=== PATIENT | female | born 1935 | race Caucasian/White ===

== ENCOUNTER 2017-08-22 22:36 | Inpatient (IN) | payer MEDICARE, OTHER ==
[~2017-08-22] VITALS: Ht 162.6 cm; Wt 50.0 kg
[2017-08-22 23:25] LABS: HEMATOCRIT 35.4 % (35.0-45.0); HEMOGLOBIN 11.7 g/dl (12.0-16.0); MEAN CORPUSCULAR HEMOGLOBIN 30.7 PG (27.0-31.0); MEAN CORPUSCULAR HGB CONC 33.2 % (33.0-36.5); MEAN CORPUSCULAR VOLUME 92.4 FL (78-98); MEAN PLATELET VOLUME 7.4 FL (7.4-10.4); RED BLOOD COUNT 3.83 X10'6 (4.20-5.60); RED CELL DISTRIBUTION WIDTH 13.4 % (11.5-14.5)
[2017-08-22 23:27] LABS: INR 1.1 INR; PARTIAL THROMBOPLASTIN TIME 29 SECONDS (22-32)
[2017-08-22 23:29] LABS: PLATELET COUNT 739 X10'3 (140-440)
[2017-08-22 23:30] LABS: WHITE BLOOD COUNT 32.5 X10'3 (4.5-11.0)
[2017-08-22] MEDS ORDERED: morphine 4 MG/ML inj SYRINge IV ONE (23:35)
[2017-08-22] MEDS ORDERED: LISI-604 PO (23:38)
[2017-08-22] MEDS ORDERED: TRAM50TA2 PO (23:38)
[2017-08-22] MEDS ORDERED: GABA-530 PO (23:38)
[2017-08-22 23:39] LABS: ALANINE AMINOTRANSFERASE 75 U/L (12-78); ALBUMIN 1.9 G/DL (3.4-5.0); ALBUMIN/GLOBULIN RATIO 0.4 (1.1-1.5); ALKALINE PHOSPHATASE 675 IU/L (46-116); ANION GAP 6 (8-16); ASPARTATE AMINO TRANSFERASE 81 U/L (10-37); BILIRUBIN,TOTAL 0.5 MG/DL (0.1-1.0); BLOOD UREA NITROGEN 17 MG/DL (7-18); BUN/CREATININE RATIO 15.3 (6.6-38.0); CALCIUM 8.8 MG/DL (8.5-10.1); CHLORIDE 94 MMOL/L (99-107); CREATININE 1.11 MG/DL (0.40-0.90); GLUCOSE 148 MG/DL (70-104); SODIUM 126 MMOL/L (135-145); TOTAL PROTEIN 6.8 G/DL (6.4-8.2); eGFR 47 ML/MIN
[2017-08-22] MEDS ORDERED: ondansetron/PF 4mg/2ml inj IV ONE (23:45)
[2017-08-22 23:47] LABS: TOTAL CELLS COUNTED 100
[2017-08-22 23:49] LABS: PLATELET ESTIMATE INCREASED
[2017-08-22] MEDS ORDERED: dextrose 50%-water 50ml dispensing syringe IV ONE (23:50)
[2017-08-22] MEDS ORDERED: sodium polystyrene sulfonate 15gm/60ml oral suspension PO ONE (23:50)
[2017-08-22] MEDS ORDERED: insulin regular, human 10 units/0.1 ml syringe IV ONE (23:50)
[2017-08-22] MEDS ORDERED: calcium chloride 100 MG/1 ML inj IV ONE ×2 (23:50→23:55)
[2017-08-23] MEDS ORDERED: albuterol 2.5 MG/3 ML nebule NEB ONE (00:45)
[2017-08-23] MEDS ORDERED: ampicillin/sulbac 3gm/NS 100ml 100 ML IV SCH (02:00)
[2017-08-23] MEDS ORDERED: mag hydrox/Alum hydrox/simeth 30ml oral suspension PO PRN (02:25)
[2017-08-23] MEDS ORDERED: magnesium hydroxide 30ml (MOM) UD suspension PO PRN (02:25)
[2017-08-23] MEDS ORDERED: ondansetron/PF 4mg/2ml inj IV PRN (02:25)
[2017-08-23] MEDS ORDERED: HYDROcodone/acetaminophen 10/325mg tab PO PRN (02:25)
[2017-08-23] MEDS ORDERED: acetaminophen 325mg tablet PO PRN ×2 (02:25)
[2017-08-23] MEDS ORDERED: HYDROcodone/acetaminophen 5mg/325mg tablet PO PRN (02:25)
[2017-08-23] MEDS ORDERED: piperacillin/tazo 4.5gm/100ml 100 ML IV SCH (02:36)
[2017-08-23] MEDS ORDERED: vancomycin/NS 1 GM ADD-VANTAGE 250 ML X 1 DOSE IV ONE ×2 (02:40→04:55)
[2017-08-23 02:43] LABS: CLARITY,URINE CLEAR (Clear); COLOR,URINE YELLOW (Yellow); GLUCOSE, URINE 100 mg/dl (Neg); KETONES,URINE NEGATIVE (Neg); LEUKOCYTE ESTERASE ,URINE NEGATIVE (Neg); NITRITES, URINE NEGATIVE (Neg); OCCULT BLOOD,URINE NEGATIVE (Neg); PROTEIN,URINE NEGATIVE (Neg); UROBILINOGEN,URINE 0.2 E.U/dL (0.2-1.0)
[2017-08-23 02:46] LABS: SODIUM,URINE RANDOM < 15 MEQ/L
[2017-08-23] MEDS: normal saline 1000ml 1,000 ML IV SCH ×3 (02:50→21:40)
[2017-08-23 02:51] LABS: OSMOLALITY UA 226 MOSM/K (50-1400)
[2017-08-23] MEDS: azithromycin 250mg tablet PO SCH ×2 (03:01→22:26)
[2017-08-23] MEDS: morphine 4 MG/ML inj SYRINge IV PRN ×7 (03:01→22:27)
[2017-08-23 03:06] LABS: UA COLLECTION TYPE CLN CATCH MIDSTREAM
[2017-08-23 03:45] VITALS: BP 124/69
[2017-08-23] MEDS ORDERED: diphenhydrAMINE 25mg capsule PO PRN (04:20)
[2017-08-23 05:25] LABS: ALBUMIN 1.7 G/DL (3.4-5.0); ANION GAP 7 (8-16); BLOOD UREA NITROGEN 17 MG/DL (7-18); BUN/CREATININE RATIO 16.5 (6.6-38.0); CHLORIDE 95 MMOL/L (99-107); CREATININE 1.03 MG/DL (0.40-0.90); GLUCOSE 140 MG/DL (70-104); POTASSIUM 5.7 MMOL/L (3.5-5.1); SODIUM 128 MMOL/L (135-145); TOTAL CARBON DIOXIDE 26.5 MMOL/L (24-32); eGFR 52 ML/MIN
[2017-08-23 05:42] LABS: OSMOLALITY 275 MOSM/K (280-300)
[2017-08-23 07:15] VITALS: BP 106/53
[2017-08-23] MEDS ORDERED: vancomycin/NS 1 GM ADD-VANTAGE 250 ML IV SCH (08:00)
[2017-08-23] MEDS: gabapentin 100mg capsule PO SCH ×4 (08:00→21:00)
[2017-08-23] MEDS ORDERED: lactobacillus rhamnosus 10,000 MMU CELLS/CAPSULE PO SCH (08:00)
[2017-08-23] MEDS: lactobacillus rhamnosus 10,000 MMU CELLS/CAPSULE PO SCH ×2 (08:33→19:52)
[2017-08-23] MEDS: CefTRIAXone/D5W-Rocephin 1gm 50 ML IV SCH (10:11)
[2017-08-23 11:16] VITALS: BP 116/62
[2017-08-23] MEDS ORDERED: LIDOcaine 1%/PF 5ML 10 MG/ML VIAL ONE (13:10)
[2017-08-23 13:35] VITALS: BP 133/84
[2017-08-23] MEDS ORDERED: tPA-cathflo 2 MG/2 ml IV flush ONE (13:47)
[2017-08-23 13:50] VITALS: BP 141/87
[2017-08-23 15:40] LABS: LDH,BODY FLUID 1792 U/L; TOTAL PROTEIN,BODY FLUID 3.9 G/DL
[2017-08-23 15:41] LABS: BF RBC COUNT 21075 /CU MM; BF WBC COUNT 670 /CU MM (0-1000); BFAPPEAR BLOODY; BFCOLOR RED; BFVOLUME 3 ML; LYMPHOCYTES,BODY FLUID 5 %; MONOCYTES,BODY FLUID 5 %; NEUTROPHILS,BODY FLUID 90 %
[2017-08-23] MEDS ORDERED: diazepam 2mg tablet PO ONE (16:15)
[2017-08-23 18:00] VITALS: BP 127/78
[2017-08-24] VITALS: BP 140/68
[2017-08-24] MEDS: morphine 4 MG/ML inj SYRINge IV PRN ×6 (01:07→21:06)
[2017-08-24] MEDS: vancomycin/NS 1 GM ADD-VANTAGE 250 ML IV SCH (05:20)
[2017-08-24 06:07] LABS: HEMATOCRIT 32.7 % (35.0-45.0); MEAN CORPUSCULAR HEMOGLOBIN 31.3 PG (27.0-31.0); MEAN CORPUSCULAR HGB CONC 33.7 % (33.0-36.5); MEAN CORPUSCULAR VOLUME 92.9 FL (78-98); MEAN PLATELET VOLUME 7.8 FL (7.4-10.4); PLATELET COUNT 639 X10'3 (140-440); RED BLOOD COUNT 3.52 X10'6 (4.20-5.60); RED CELL DISTRIBUTION WIDTH 13.6 % (11.5-14.5)
[2017-08-24 06:19] LABS: WHITE BLOOD COUNT 34.6 X10'3 (4.5-11.0)
[2017-08-24 06:42] LABS: ALANINE AMINOTRANSFERASE 40 U/L (12-78); ALBUMIN 1.5 G/DL (3.4-5.0); ALBUMIN/GLOBULIN RATIO 0.3 (1.1-1.5); ALKALINE PHOSPHATASE 454 IU/L (46-116); ANION GAP 10 (8-16); ASPARTATE AMINO TRANSFERASE 17 U/L (10-37); BILIRUBIN,TOTAL 0.4 MG/DL (0.1-1.0); BLOOD UREA NITROGEN 20 MG/DL (7-18); BUN/CREATININE RATIO 18.3 (6.6-38.0); CALCIUM 8.3 MG/DL (8.5-10.1); CHLORIDE 101 MMOL/L (99-107); CREATININE 1.09 MG/DL (0.40-0.90); GLUCOSE 89 MG/DL (70-104); POTASSIUM 5.4 MMOL/L (3.5-5.1); SODIUM 136 MMOL/L (135-145); TOTAL PROTEIN 5.8 G/DL (6.4-8.2); eGFR 48 ML/MIN
[2017-08-24 07:00] VITALS: BP 111/57
[2017-08-24 07:07] LABS: PLATELET ESTIMATE INCREASED; TOTAL CELLS COUNTED 100
[2017-08-24] MEDS: gabapentin 100mg capsule PO SCH ×3 (07:27→21:00)
[2017-08-24] MEDS: lactobacillus rhamnosus 10,000 MMU CELLS/CAPSULE PO SCH ×2 (07:30→22:07)
[2017-08-24] MEDS: CefTRIAXone/D5W-Rocephin 1gm 50 ML IV SCH (07:30)
[2017-08-24 11:50] VITALS: BP 120/71
[2017-08-24] MEDS: [UNRECOGNIZED DRUG - OTHER] PO SCH ×2 (12:07→18:57)
[2017-08-24] MEDS ORDERED: tPA-cathflo 2 MG/2 ml IV flush ICATH ONE (14:00)
[2017-08-24] MEDS ORDERED: tPA-cathflo 2 MG/2 ml IV flush ONE (14:06)
[2017-08-24] MEDS: doxycycline hyclate 100mg tablet.DR PO SCH (17:36)
[2017-08-24 20:00] VITALS: BP 164/84
[2017-08-24] MEDS ORDERED: bisacodyl 10mg suppository rectal RC STA (20:14)
[2017-08-24] MEDS ORDERED: mineral oil 133ml enema RC PRN (20:15)
[2017-08-24 20:16] LABS: PLATELET ESTIMATE INCREASED; TOTAL CELLS COUNTED 100
[2017-08-24] MEDS: azithromycin 250mg tablet PO SCH (22:07)
[2017-08-24] MEDS: normal saline 1000ml 1,000 ML IV SCH (22:35)
[2017-08-25] VITALS: BP 140/86
[2017-08-25] MEDS: morphine 4 MG/ML inj SYRINge IV PRN ×3 (00:50→17:37)
[2017-08-25 05:15] LABS: BASOPHILS % (AUTO) 0.1 % (0-1); EOSINOPHILS % (AUTO) 0 % (0-6); HEMATOCRIT 31.5 % (35.0-45.0); HEMOGLOBIN 10.6 g/dl (12.0-16.0); LYMPHOCYTES # (AUTO) 0.9 X10'3 (1.1-4.8); LYMPHOCYTES % (AUTO) 2.9 % (21-51); MEAN CORPUSCULAR HEMOGLOBIN 31.1 PG (27.0-31.0); MEAN CORPUSCULAR HGB CONC 33.7 % (33.0-36.5); MEAN CORPUSCULAR VOLUME 92.3 FL (78-98); MEAN PLATELET VOLUME 7.5 FL (7.4-10.4); MONOCYTES # (AUTO) 1.7 X10'3 (0-0.9); MONOCYTES % (AUTO) 5.2 % (2-12); NEUTROPHILS # (AUTO) 29.2 X10'3 (1.8-7.7); NEUTROPHILS % (AUTO) 91.8 % (42-75); PLATELET COUNT 761 X10'3 (140-440); RED BLOOD COUNT 3.41 X10'6 (4.20-5.60); RED CELL DISTRIBUTION WIDTH 13.2 % (11.5-14.5)
[2017-08-25] MEDS: vancomycin/NS 1 GM ADD-VANTAGE 250 ML IV SCH (05:21)
[2017-08-25 05:36] LABS: ALBUMIN 1.4 G/DL (3.4-5.0); ANION GAP 8 (8-16); BLOOD UREA NITROGEN 23 MG/DL (7-18); BUN/CREATININE RATIO 24.5 (6.6-38.0); CHLORIDE 101 MMOL/L (99-107); CREATININE 0.94 MG/DL (0.40-0.90); GLUCOSE 135 MG/DL (70-104); POTASSIUM 4.8 MMOL/L (3.5-5.1); SODIUM 132 MMOL/L (135-145); TOTAL CARBON DIOXIDE 23.5 MMOL/L (24-32); eGFR 57 ML/MIN
[2017-08-25 06:06] LABS: WHITE BLOOD COUNT 31.9 X10'3 (4.5-11.0)
[2017-08-25 07:00] VITALS: BP 109/56
[2017-08-25] MEDS: gabapentin 100mg capsule PO SCH ×3 (07:12→20:47)
[2017-08-25] MEDS: CefTRIAXone/D5W-Rocephin 1gm 50 ML IV SCH (07:21)
[2017-08-25] MEDS: doxycycline hyclate 100mg tablet.DR PO SCH (07:27)
[2017-08-25 07:28] LABS: PLATELET ESTIMATE INCREASED; TOTAL CELLS COUNTED 100
[2017-08-25] MEDS: [UNRECOGNIZED DRUG - OTHER] PO SCH ×3 (08:00→18:00)
[2017-08-25] MEDS: lactobacillus rhamnosus 10,000 MMU CELLS/CAPSULE PO SCH ×2 (08:00→20:40)
[2017-08-25] MEDS: normal saline 1000ml 1,000 ML IV SCH (18:35)
[2017-08-25 20:00] VITALS: BP 147/71
[2017-08-25] MEDS: traMADol 50MG tablet PO PRN (20:39)
[2017-08-25] MEDS: DOXYCYCLINE 100MG CAPSULE PO SCH (20:39)
[2017-08-25] MEDS: azithromycin 250mg tablet PO SCH (20:40)
[2017-08-25] MEDS: metoclopramide 5 mg/ml inj IV SCH (20:40)
[2017-08-26] VITALS: BP 145/71
[2017-08-26] MEDS: metoclopramide 5 mg/ml inj IV SCH ×4 (02:15→20:14)
[2017-08-26] MEDS: traMADol 50MG tablet PO PRN ×3 (02:19→18:50)
[2017-08-26] MEDS ORDERED: VANCOMYCIN LEVEL IV ONE (04:30)
[2017-08-26 05:57] LABS: BASOPHILS # (AUTO) 0.1 X10'3 (0-0.2); BASOPHILS % (AUTO) 0.5 % (0-1); EOSINOPHILS # (AUTO) 0.1 X10'3 (0-0.9); EOSINOPHILS % (AUTO) 0.3 % (0-6); HEMATOCRIT 33.1 % (35.0-45.0); HEMOGLOBIN 11.1 g/dl (12.0-16.0); LYMPHOCYTES # (AUTO) 1.8 X10'3 (1.1-4.8); LYMPHOCYTES % (AUTO) 7.8 % (21-51); MEAN CORPUSCULAR HEMOGLOBIN 30.5 PG (27.0-31.0); MEAN CORPUSCULAR HGB CONC 33.4 % (33.0-36.5); MEAN CORPUSCULAR VOLUME 91.3 FL (78-98); MEAN PLATELET VOLUME 7.5 FL (7.4-10.4); MONOCYTES # (AUTO) 1.3 X10'3 (0-0.9); MONOCYTES % (AUTO) 5.8 % (2-12); NEUTROPHILS # (AUTO) 19.9 X10'3 (1.8-7.7); NEUTROPHILS % (AUTO) 85.6 % (42-75); PLATELET COUNT 703 X10'3 (140-440); RED BLOOD COUNT 3.62 X10'6 (4.20-5.60); RED CELL DISTRIBUTION WIDTH 13.8 % (11.5-14.5); WHITE BLOOD COUNT 23.2 X10'3 (4.5-11.0)
[2017-08-26 06:17] LABS: ALBUMIN 1.4 G/DL (3.4-5.0); ANION GAP 9 (8-16); BLOOD UREA NITROGEN 23 MG/DL (7-18); BUN/CREATININE RATIO 24.7 (6.6-38.0); CALCIUM 8.6 MG/DL (8.5-10.1); CHLORIDE 106 MMOL/L (99-107); CREATININE 0.93 MG/DL (0.40-0.90); GLUCOSE 83 MG/DL (70-104); POTASSIUM 4.1 MMOL/L (3.5-5.1); SODIUM 140 MMOL/L (135-145); TOTAL CARBON DIOXIDE 24.8 MMOL/L (24-32); VANCOMYCIN,TROUGH 10.7 UG/ML (6.0-14.0); eGFR 58 ML/MIN
[2017-08-26 07:42] LABS: PLATELET ESTIMATE INCREASED; POLYCHROMASIA 1+; TOTAL CELLS COUNTED 100
[2017-08-26 07:43] LABS: BURR CELLS 1+
[2017-08-26 07:44] VITALS: BP 122/56
[2017-08-26] MEDS: [UNRECOGNIZED DRUG - OTHER] PO SCH ×3 (08:00→17:28)
[2017-08-26] MEDS: gabapentin 100mg capsule PO SCH ×3 (08:13→20:14)
[2017-08-26] MEDS: lactobacillus rhamnosus 10,000 MMU CELLS/CAPSULE PO SCH ×2 (08:14→20:13)
[2017-08-26] MEDS: CefTRIAXone/D5W-Rocephin 1gm 50 ML IV SCH (08:15)
[2017-08-26] MEDS: DOXYCYCLINE 100MG CAPSULE PO SCH ×2 (08:20→17:28)
[2017-08-26 12:00] VITALS: BP 140/73
[2017-08-26] MEDS: normal saline 1000ml 1,000 ML IV SCH ×2 (14:35→20:35)
[2017-08-26 20:00] VITALS: BP 138/79
[2017-08-26] MEDS: azithromycin 250mg tablet PO SCH (20:14)
[2017-08-27] VITALS: BP 148/86
[2017-08-27] MEDS: traMADol 50MG tablet PO PRN ×4 (02:07→19:28)
[2017-08-27] MEDS: metoclopramide 5 mg/ml inj IV SCH ×4 (02:07→19:29)
[2017-08-27 06:05] LABS: BASOPHILS # (AUTO) 0.1 X10'3 (0-0.2); BASOPHILS % (AUTO) 0.4 % (0-1); EOSINOPHILS # (AUTO) 0.1 X10'3 (0-0.9); EOSINOPHILS % (AUTO) 0.7 % (0-6); HEMATOCRIT 29.5 % (35.0-45.0); HEMOGLOBIN 9.7 g/dl (12.0-16.0); LYMPHOCYTES # (AUTO) 1.5 X10'3 (1.1-4.8); LYMPHOCYTES % (AUTO) 10.9 % (21-51); MEAN CORPUSCULAR HEMOGLOBIN 30.2 PG (27.0-31.0); MEAN CORPUSCULAR HGB CONC 32.8 % (33.0-36.5); MEAN PLATELET VOLUME 7.3 FL (7.4-10.4); MONOCYTES # (AUTO) 1.1 X10'3 (0-0.9); MONOCYTES % (AUTO) 7.6 % (2-12); NEUTROPHILS # (AUTO) 11.2 X10'3 (1.8-7.7); NEUTROPHILS % (AUTO) 80.4 % (42-75); PLATELET COUNT 760 X10'3 (140-440); RED CELL DISTRIBUTION WIDTH 13.7 % (11.5-14.5)
[2017-08-27 06:13] LABS: ALBUMIN 1.3 G/DL (3.4-5.0); ANION GAP 9 (8-16); BLOOD UREA NITROGEN 20 MG/DL (7-18); CALCIUM 7.9 MG/DL (8.5-10.1); CHLORIDE 107 MMOL/L (99-107); CREATININE 0.77 MG/DL (0.40-0.90); GLUCOSE 87 MG/DL (70-104); POTASSIUM 3.6 MMOL/L (3.5-5.1); SODIUM 140 MMOL/L (135-145); TOTAL CARBON DIOXIDE 24.5 MMOL/L (24-32); eGFR 72 ML/MIN
[2017-08-27 07:00] VITALS: BP 140/79
[2017-08-27] MEDS: lactobacillus rhamnosus 10,000 MMU CELLS/CAPSULE PO SCH ×2 (07:56→19:28)
[2017-08-27] MEDS: gabapentin 100mg capsule PO SCH ×3 (07:56→20:38)
[2017-08-27] MEDS: CefTRIAXone/D5W-Rocephin 1gm 50 ML IV SCH (07:58)
[2017-08-27] MEDS: [UNRECOGNIZED DRUG - OTHER] PO SCH ×3 (08:07→17:27)
[2017-08-27] MEDS: DOXYCYCLINE 100MG CAPSULE PO SCH ×2 (08:09→17:27)
[2017-08-27 11:00] VITALS: BP 136/69
[2017-08-27 19:39] VITALS: BP 155/81
[2017-08-27] MEDS: azithromycin 250mg tablet PO SCH (20:38)
[2017-08-27 23:33] VITALS: BP 144/79
[2017-08-28] MEDS: traMADol 50MG tablet PO PRN ×5 (01:16→20:47)
[2017-08-28] MEDS: metoclopramide 5 mg/ml inj IV SCH ×4 (01:19→20:00)
[2017-08-28 05:17] LABS: BASOPHILS # (AUTO) 0.1 X10'3 (0-0.2); BASOPHILS % (AUTO) 0.7 % (0-1); EOSINOPHILS # (AUTO) 0.1 X10'3 (0-0.9); EOSINOPHILS % (AUTO) 0.4 % (0-6); HEMATOCRIT 30.1 % (35.0-45.0); LYMPHOCYTES # (AUTO) 1.6 X10'3 (1.1-4.8); LYMPHOCYTES % (AUTO) 9.8 % (21-51); MEAN CORPUSCULAR HEMOGLOBIN 30.4 PG (27.0-31.0); MEAN CORPUSCULAR HGB CONC 33.2 % (33.0-36.5); MEAN CORPUSCULAR VOLUME 91.7 FL (78-98); MEAN PLATELET VOLUME 7.3 FL (7.4-10.4); MONOCYTES # (AUTO) 1.5 X10'3 (0-0.9); MONOCYTES % (AUTO) 9.2 % (2-12); NEUTROPHILS # (AUTO) 12.9 X10'3 (1.8-7.7); NEUTROPHILS % (AUTO) 79.9 % (42-75); PLATELET COUNT 732 X10'3 (140-440); RED BLOOD COUNT 3.28 X10'6 (4.20-5.60); RED CELL DISTRIBUTION WIDTH 13.6 % (11.5-14.5); WHITE BLOOD COUNT 16.1 X10'3 (4.5-11.0)
[2017-08-28 05:29] LABS: ALBUMIN 1.4 G/DL (3.4-5.0); ANION GAP 7 (8-16); BLOOD UREA NITROGEN 15 MG/DL (7-18); CALCIUM 8.1 MG/DL (8.5-10.1); CHLORIDE 107 MMOL/L (99-107); CREATININE 0.79 MG/DL (0.40-0.90); GLUCOSE 86 MG/DL (70-104); POTASSIUM 3.5 MMOL/L (3.5-5.1); SODIUM 141 MMOL/L (135-145); TOTAL CARBON DIOXIDE 27.4 MMOL/L (24-32); eGFR 70 ML/MIN
[2017-08-28 07:30] VITALS: BP 153/82
[2017-08-28] MEDS: CefTRIAXone/D5W-Rocephin 1gm 50 ML IV SCH (08:05)
[2017-08-28] MEDS: lactobacillus rhamnosus 10,000 MMU CELLS/CAPSULE PO SCH ×2 (08:06→20:47)
[2017-08-28] MEDS: DOXYCYCLINE 100MG CAPSULE PO SCH ×2 (08:06→17:16)
[2017-08-28] MEDS: [UNRECOGNIZED DRUG - OTHER] PO SCH (08:06)
[2017-08-28] MEDS: gabapentin 100mg capsule PO SCH ×3 (08:06→20:47)
[2017-08-28 11:51] VITALS: BP 147/81
[2017-08-28] MEDS: [UNRECOGNIZED DRUG - OTHER] PO SCH ×2 (13:15→17:18)
[2017-08-28 20:00] VITALS: BP 158/88
[2017-08-28] MEDS: azithromycin 250mg tablet PO SCH (20:48)
[2017-08-29] VITALS: BP 149/74
[2017-08-29] MEDS: metoclopramide 5 mg/ml inj IV SCH ×4 (02:00→21:54)
[2017-08-29 07:17] VITALS: BP 137/72
[2017-08-29 07:38] LABS: BASOPHILS # (AUTO) 0.2 X10'3 (0-0.2); MONOCYTES % (AUTO) 7.1 % (2-12)
[2017-08-29 07:42] LABS: BASOPHILS % (AUTO) 0.9 % (0-1); EOSINOPHILS % (AUTO) 0 % (0-6); HEMATOCRIT 31.5 % (35.0-45.0); HEMOGLOBIN 10.6 g/dl (12.0-16.0); LYMPHOCYTES # (AUTO) 1.7 X10'3 (1.1-4.8); LYMPHOCYTES % (AUTO) 9.6 % (21-51); MEAN CORPUSCULAR HEMOGLOBIN 30.7 PG (27.0-31.0); MEAN CORPUSCULAR HGB CONC 33.8 % (33.0-36.5); MEAN CORPUSCULAR VOLUME 90.8 FL (78-98); MEAN PLATELET VOLUME 6.5 FL (7.4-10.4); MONOCYTES # (AUTO) 1.3 X10'3 (0-0.9); NEUTROPHILS # (AUTO) 14.6 X10'3 (1.8-7.7); NEUTROPHILS % (AUTO) 82.4 % (42-75); PLATELET COUNT 743 X10'3 (140-440); RED BLOOD COUNT 3.47 X10'6 (4.20-5.60); RED CELL DISTRIBUTION WIDTH 13.7 % (11.5-14.5); WHITE BLOOD COUNT 17.7 X10'3 (4.5-11.0)
[2017-08-29 07:52] LABS: ALANINE AMINOTRANSFERASE 26 U/L (12-78); ALBUMIN 1.4 G/DL (3.4-5.0); ALBUMIN/GLOBULIN RATIO 0.4 (1.1-1.5); ALKALINE PHOSPHATASE 245 IU/L (46-116); ANION GAP 7 (8-16); ASPARTATE AMINO TRANSFERASE 16 U/L (10-37); BILIRUBIN,TOTAL 0.3 MG/DL (0.1-1.0); BLOOD UREA NITROGEN 15 MG/DL (7-18); BUN/CREATININE RATIO 19.7 (6.6-38.0); CALCIUM 7.6 MG/DL (8.5-10.1); CHLORIDE 105 MMOL/L (99-107); CREATININE 0.76 MG/DL (0.40-0.90); GLUCOSE 85 MG/DL (70-104); POTASSIUM 3.8 MMOL/L (3.5-5.1); SODIUM 141 MMOL/L (135-145); TOTAL PROTEIN 5.3 G/DL (6.4-8.2); eGFR 73 ML/MIN
[2017-08-29] MEDS: gabapentin 100mg capsule PO SCH ×3 (08:40→21:57)
[2017-08-29] MEDS: lactobacillus rhamnosus 10,000 MMU CELLS/CAPSULE PO SCH ×2 (08:40→21:57)
[2017-08-29] MEDS: DOXYCYCLINE 100MG CAPSULE PO SCH ×2 (08:40→16:32)
[2017-08-29] MEDS: [UNRECOGNIZED DRUG - OTHER] PO SCH (08:40)
[2017-08-29] MEDS: CefTRIAXone/D5W-Rocephin 1gm 50 ML IV SCH (08:41)
[2017-08-29] MEDS: traMADol 50MG tablet PO PRN ×3 (08:48→16:32)
[2017-08-29] MEDS ORDERED: NORMAL SALINE ICATH ONE (11:15)
[2017-08-29] MEDS ORDERED: FLUSH 5 MG ICATH ONE (11:15)
[2017-08-29] MEDS ORDERED: TPA CATHFLO ICATH ONE (11:15)
[2017-08-29 11:52] VITALS: BP 133/82
[2017-08-29] MEDS: TYPE IN GENERIC & BRAND NAME OF PATIENT MED STRENGTH & FORM PO SCH ×2 (12:42→17:49)
[2017-08-29] MEDS: morphine 4 MG/ML inj SYRINge IV PRN (19:41)
[2017-08-29 20:00] VITALS: BP 138/74
[2017-08-29] MEDS: azithromycin 250mg tablet PO SCH (21:57)
[2017-08-30] VITALS: BP 134/68
[2017-08-30] MEDS: traMADol 50MG tablet PO PRN ×4 (01:35→17:39)
[2017-08-30] MEDS: metoclopramide 5 mg/ml inj IV SCH ×4 (02:00→20:00)
[2017-08-30 07:00] VITALS: BP 115/64
[2017-08-30] MEDS: TYPE IN GENERIC & BRAND NAME OF PATIENT MED STRENGTH & FORM PO SCH ×3 (08:44→20:31)
[2017-08-30] MEDS: CefTRIAXone/D5W-Rocephin 1gm 50 ML IV SCH (08:45)
[2017-08-30] MEDS: gabapentin 100mg capsule PO SCH ×3 (08:46→17:39)
[2017-08-30] MEDS: DOXYCYCLINE 100MG CAPSULE PO SCH ×3 (08:46→17:53)
[2017-08-30] MEDS: lactobacillus rhamnosus 10,000 MMU CELLS/CAPSULE PO SCH ×2 (08:46→20:30)
[2017-08-30 11:00] VITALS: BP 130/68
[2017-08-30 20:00] VITALS: BP 134/69
[2017-08-31] VITALS: BP 133/64
[2017-08-31] MEDS: metoclopramide 5 mg/ml inj IV SCH ×4 (02:00→19:57)
[2017-08-31 07:00] VITALS: BP 127/74
[2017-08-31] MEDS ORDERED: CefTRIAXone 2gm/D5W 50ml 50 ML IV SCH (08:00)
[2017-08-31] MEDS: TYPE IN GENERIC & BRAND NAME OF PATIENT MED STRENGTH & FORM PO SCH ×3 (08:00→17:21)
[2017-08-31] MEDS: gabapentin 100mg capsule PO SCH ×3 (08:08→17:19)
[2017-08-31] MEDS: DOXYCYCLINE 100MG CAPSULE PO SCH (08:08)
[2017-08-31] MEDS: lactobacillus rhamnosus 10,000 MMU CELLS/CAPSULE PO SCH ×2 (08:08→20:00)
[2017-08-31] MEDS: traMADol 50MG tablet PO PRN ×5 (08:09→20:00)
[2017-08-31] MEDS ORDERED: [UNRECOGNIZED DRUG - OTHER] PO (09:48)
[2017-08-31] MEDS: [UNRECOGNIZED DRUG - OTHER] PO SCH ×2 (10:07→19:59)
[2017-08-31 11:00] VITALS: BP 134/68
[2017-08-31] MEDS ORDERED: TPA CATHFLO ICATH ONE (11:50)
[2017-08-31] MEDS ORDERED: NORMAL SALINE ICATH ONE (11:50)
[2017-08-31] MEDS ORDERED: FLUSH 5 MG ICATH ONE (11:50)
[2017-08-31] MEDS: amoxicillin 250mg capsule PO SCH ×2 (17:20→23:44)
[2017-08-31 18:00] VITALS: BP 119/66
[2017-09-01] VITALS: BP 119/61
[2017-09-01] MEDS: metoclopramide 5 mg/ml inj IV SCH ×4 (01:22→20:00)
[2017-09-01 07:32] VITALS: BP 133/62
[2017-09-01] MEDS: lactobacillus rhamnosus 10,000 MMU CELLS/CAPSULE PO SCH ×2 (09:27→20:08)
[2017-09-01] MEDS: gabapentin 100mg capsule PO SCH ×3 (09:27→20:08)
[2017-09-01] MEDS: amoxicillin 250mg capsule PO SCH ×3 (09:27→23:09)
[2017-09-01] MEDS: traMADol 50MG tablet PO PRN ×4 (09:27→20:12)
[2017-09-01] MEDS: TYPE IN GENERIC & BRAND NAME OF PATIENT MED STRENGTH & FORM PO SCH (09:28)
[2017-09-01] MEDS: [UNRECOGNIZED DRUG - OTHER] PO SCH ×3 (09:29→20:08)
[2017-09-01 10:11] LABS: BASOPHILS # (AUTO) 0.1 X10'3 (0-0.2); EOSINOPHILS % (AUTO) 0 % (0-6); HEMATOCRIT 33.4 % (35.0-45.0); LYMPHOCYTES % (AUTO) 13.9 % (21-51); MEAN CORPUSCULAR HEMOGLOBIN 29.7 PG (27.0-31.0); MEAN CORPUSCULAR HGB CONC 32.9 % (33.0-36.5); MEAN CORPUSCULAR VOLUME 90.3 FL (78-98); MEAN PLATELET VOLUME 7.1 FL (7.4-10.4); MONOCYTES % (AUTO) 7.3 % (2-12); NEUTROPHILS # (AUTO) 11.1 X10'3 (1.8-7.7); NEUTROPHILS % (AUTO) 77.8 % (42-75); PLATELET COUNT 714 X10'3 (140-440); RED CELL DISTRIBUTION WIDTH 14.1 % (11.5-14.5); WHITE BLOOD COUNT 14.3 X10'3 (4.5-11.0)
[2017-09-01 10:23] LABS: ALBUMIN 1.4 G/DL (3.4-5.0); ANION GAP 6 (8-16); BLOOD UREA NITROGEN 18 MG/DL (7-18); BUN/CREATININE RATIO 20.7 (6.6-38.0); CALCIUM 7.8 MG/DL (8.5-10.1); CHLORIDE 101 MMOL/L (99-107); CREATININE 0.87 MG/DL (0.40-0.90); GLUCOSE 129 MG/DL (70-104); POTASSIUM 3.4 MMOL/L (3.5-5.1); SODIUM 136 MMOL/L (135-145); TOTAL CARBON DIOXIDE 29.3 MMOL/L (24-32); eGFR 63 ML/MIN
[2017-09-01] MEDS ORDERED: potassium Cl 20 mEq SR tablet PO PRN (11:30)
[2017-09-01] MEDS: K, MAG and/or Phos replacement - Verify level? MC SCH (11:30)
[2017-09-01 11:31] VITALS: BP 135/73
[2017-09-01] MEDS: potassium Cl 20 mEq SR tablet PO PRN ×3 (12:48→23:12)
[2017-09-01] MEDS: [UNRECOGNIZED DRUG - OTHER] PO SCH ×2 (13:07→17:38)
[2017-09-01 18:00] VITALS: BP 124/62
[2017-09-02] VITALS: BP 113/56
[2017-09-02] MEDS: metoclopramide 5 mg/ml inj IV SCH ×4 (01:58→20:00)
[2017-09-02 07:22] VITALS: BP 131/60
[2017-09-02] MEDS: [UNRECOGNIZED DRUG - OTHER] PO SCH ×3 (07:23→17:02)
[2017-09-02] MEDS: traMADol 50MG tablet PO PRN ×4 (07:24→23:59)
[2017-09-02] MEDS: amoxicillin 250mg capsule PO SCH ×3 (07:24→23:19)
[2017-09-02] MEDS: lactobacillus rhamnosus 10,000 MMU CELLS/CAPSULE PO SCH ×2 (07:24→20:02)
[2017-09-02] MEDS: gabapentin 100mg capsule PO SCH ×3 (07:25→20:02)
[2017-09-02] MEDS: [UNRECOGNIZED DRUG - OTHER] PO SCH ×3 (07:29→20:03)
[2017-09-02] MEDS: K, MAG and/or Phos replacement - Verify level? MC SCH (07:34)
[2017-09-02 11:50] VITALS: BP 141/64
[2017-09-02 19:00] VITALS: BP 127/79
[2017-09-02 23:49] VITALS: BP 134/73
[2017-09-03] MEDS: metoclopramide 5 mg/ml inj IV SCH ×3 (01:31→12:23)
[2017-09-03 05:13] LABS: BASOPHILS # (AUTO) 0.1 X10'3 (0-0.2); BASOPHILS % (AUTO) 0.6 % (0-1); EOSINOPHILS # (AUTO) 0.1 X10'3 (0-0.9); EOSINOPHILS % (AUTO) 1.3 % (0-6); HEMATOCRIT 31.1 % (35.0-45.0); HEMOGLOBIN 10.1 g/dl (12.0-16.0); LYMPHOCYTES # (AUTO) 2.4 X10'3 (1.1-4.8); LYMPHOCYTES % (AUTO) 22.8 % (21-51); MEAN CORPUSCULAR HEMOGLOBIN 29.9 PG (27.0-31.0); MEAN CORPUSCULAR HGB CONC 32.6 % (33.0-36.5); MEAN CORPUSCULAR VOLUME 91.7 FL (78-98); MEAN PLATELET VOLUME 7.2 FL (7.4-10.4); MONOCYTES % (AUTO) 9.4 % (2-12); NEUTROPHILS # (AUTO) 6.9 X10'3 (1.8-7.7); NEUTROPHILS % (AUTO) 65.9 % (42-75); PLATELET COUNT 690 X10'3 (140-440); RED BLOOD COUNT 3.39 X10'6 (4.20-5.60); RED CELL DISTRIBUTION WIDTH 14.1 % (11.5-14.5); WHITE BLOOD COUNT 10.4 X10'3 (4.5-11.0)
[2017-09-03 05:42] LABS: ALANINE AMINOTRANSFERASE 18 U/L (12-78); ALBUMIN 1.4 G/DL (3.4-5.0); ALBUMIN/GLOBULIN RATIO 0.4 (1.1-1.5); ALKALINE PHOSPHATASE 217 IU/L (46-116); ANION GAP 2 (8-16); ASPARTATE AMINO TRANSFERASE 16 U/L (10-37); BILIRUBIN,TOTAL 0.2 MG/DL (0.1-1.0); BLOOD UREA NITROGEN 10 MG/DL (7-18); BUN/CREATININE RATIO 14.3 (6.6-38.0); CALCIUM 7.8 MG/DL (8.5-10.1); CHLORIDE 105 MMOL/L (99-107); GLUCOSE 80 MG/DL (70-104); MAGNESIUM 1.8 MG/DL (1.5-2.4); PHOSPHORUS 3.2 MG/DL (2.3-4.5); POTASSIUM 4.1 MMOL/L (3.5-5.1); SODIUM 140 MMOL/L (135-145); TOTAL PROTEIN 5.1 G/DL (6.4-8.2); eGFR 81 ML/MIN
[2017-09-03 07:50] VITALS: BP 118/83
[2017-09-03] MEDS: [UNRECOGNIZED DRUG - OTHER] PO SCH ×3 (08:00→17:09)
[2017-09-03] MEDS: K, MAG and/or Phos replacement - Verify level? MC SCH (08:00)
[2017-09-03] MEDS: [UNRECOGNIZED DRUG - OTHER] PO SCH ×2 (08:25→12:25)
[2017-09-03] MEDS: traMADol 50MG tablet PO PRN ×3 (08:25→15:24)
[2017-09-03] MEDS: lactobacillus rhamnosus 10,000 MMU CELLS/CAPSULE PO SCH (08:25)
[2017-09-03] MEDS: gabapentin 100mg capsule PO SCH ×2 (08:25→12:25)
[2017-09-03] MEDS: amoxicillin 250mg capsule PO SCH ×2 (08:25→15:21)
[2017-09-03 11:39] VITALS: BP 135/75
== END 2017-09-03 17:39 | DRG 871 ==
LOC: ER 22:36 → ED HOLD 08-23 02:24 → SUR 3N 08-23 03:20
PROVIDERS: ADMIT Hospitalist; ATTEND Family Medicine
PROC: 3E04317 Introduction of Other Thrombolytic into Central Vein, Percutaneous Approach (ICD-10-PCS; principal; 2017-08-23)
PROC: 0W9B30Z Drainage of Left Pleural Cavity with Drainage Device, Percutaneous Approach (ICD-10-PCS; 2017-08-23)
DX: A41.9 Sepsis, unspecified organism (principal); J18.9 Pneumonia, unspecified organism; J86.9 Pyothorax without fistula; E46 Unspecified protein-calorie malnutrition; J90 Pleural effusion, not elsewhere classified; E87.1 Hypo-osmolality and hyponatremia; I82.602 Acute embolism and thrombosis of unspecified veins of left upper extremity; A69.20 Lyme disease, unspecified; Z68.1 Body mass index [BMI] 19.9 or less, adult; K59.00 Constipation, unspecified; E87.5 Hyperkalemia; B95.4 Other streptococcus as the cause of diseases classified elsewhere; R74.8 Abnormal levels of other serum enzymes; D47.3 Essential (hemorrhagic) thrombocythemia; E87.6 Hypokalemia; G62.9 Polyneuropathy, unspecified; I10 Essential (primary) hypertension; M81.0 Age-related osteoporosis without current pathological fracture; M19.90 Unspecified osteoarthritis, unspecified site; M48.00 Spinal stenosis, site unspecified; Z88.1 Allergy status to other antibiotic agents; Z88.8 Allergy status to other drugs, medicaments and biological substances; Z79.899 Other long term (current) drug therapy; S22.42XD Multiple fractures of ribs, left side, subsequent encounter for fracture with routine healing
CPT/HCPCS: 32557; 36415; 71045; 71250; 74018; 74176; 80048; 80053; 80202; 81003; 83605; 83615; 83735; 83880; 83930; 83935; 84100; 84132; 84157; 84300; 84484; 85007; 85025; 85610; 85730; 87040; 87070; 87077; 87186; 89051; 93005; 93971; 94640; 94760; 96374; 96375; 97110; 97116; 97162; 97530; 99285; A6223; A6257; J0696; J1815; J2001; J2270; J2405; J2543; J2765; J2997; J3370; J7030; Q0163

== ENCOUNTER 2019-07-19 11:42 | Inpatient (IN) | payer MEDICARE, OTHER ==
[~2019-07-19] VITALS: Ht 160 cm; Wt 56.9 kg
[~2019-07-19 11:42] MED LIST: GABA-530 PO; LISI-604 PO; TRAM50TA2 PO; [UNRECOGNIZED DRUG - OTHER] PO
[2019-07-19 13:30] LABS: BASOPHILS # (AUTO) 0.1 X10'3 (0-0.2); EOSINOPHILS % (AUTO) 0 % (0-6); HEMOGLOBIN 11.2 g/dl (12.0-16.0); MEAN CORPUSCULAR HEMOGLOBIN 28.4 PG (27.0-31.0); RED BLOOD COUNT 3.95 X10'6 (4.20-5.60)
[2019-07-19 13:32] LABS: BASOPHILS % (AUTO) 0.2 % (0-1); HEMATOCRIT 34.8 % (35.0-45.0); LYMPHOCYTES # (AUTO) 1.5 X10'3 (1.1-4.8); LYMPHOCYTES % (AUTO) 4.3 % (21-51); MEAN CORPUSCULAR HGB CONC 32.3 g/dL (33.0-36.5); MEAN CORPUSCULAR VOLUME 88.1 FL (78-98); MEAN PLATELET VOLUME 7.3 FL (7.4-10.4); MONOCYTES # (AUTO) 1.8 X10'3 (0-0.9); MONOCYTES % (AUTO) 5.3 % (2-12); NEUTROPHILS # (AUTO) 30.8 X10'3 (1.8-7.7); NEUTROPHILS % (AUTO) 90.2 % (42-75); PLATELET COUNT 795 X10'3 (140-440); RED CELL DISTRIBUTION WIDTH 15.2 % (11.5-14.5)
[2019-07-19 13:41] LABS: ALANINE AMINOTRANSFERASE 12 U/L (12-78); ALBUMIN 1.7 G/DL (3.4-5.0); ALBUMIN/GLOBULIN RATIO 0.4 (1.1-1.5); ALKALINE PHOSPHATASE 320 IU/L (46-116); ANION GAP 6 (8-16); ASPARTATE AMINO TRANSFERASE 18 U/L (10-37); BILIRUBIN,TOTAL 0.4 MG/DL (0.1-1.0); BLOOD UREA NITROGEN 18 MG/DL (7-18); BUN/CREATININE RATIO 17.3 (6.6-38.0); CALCIUM 9.4 MG/DL (8.5-10.1); CHLORIDE 97 MMOL/L (99-107); CREATININE 1.04 MG/DL (0.40-0.90); GLUCOSE 109 MG/DL (70-104); POTASSIUM 4.5 MMOL/L (3.5-5.1); SODIUM 131 MMOL/L (135-145); TOTAL CARBON DIOXIDE 28.4 MMOL/L (24-32); TOTAL PROTEIN 6.5 G/DL (6.4-8.2); WHITE BLOOD COUNT 34.1 X10'3 (4.5-11.0); eGFR 51 ML/MIN
[2019-07-19 14:03] LABS: ANISOCYTOSIS 1+; PLATELET ESTIMATE INCREASED; TOTAL CELLS COUNTED 100
[2019-07-19 14:25] LABS: CLARITY,URINE CLEAR (Clear); COLOR,URINE YELLOW (Yellow); GLUCOSE, URINE NEGATIVE (Neg); KETONES,URINE TRACE mg/dl (Neg); LEUKOCYTE ESTERASE ,URINE NEGATIVE (Neg); NITRITES, URINE NEGATIVE (Neg); OCCULT BLOOD,URINE NEGATIVE (Neg); PROTEIN,URINE NEGATIVE (Neg); UROBILINOGEN,URINE 0.2 E.U/dL (0.2-1.0)
[2019-07-19] MEDS ORDERED: CefTRIAXone 2gm/D5W 50ml 50 ML IV ONE (14:25)
[2019-07-19 14:26] LABS: UA COLLECTION TYPE STRAIGHT CATH
[2019-07-19] MEDS ORDERED: magnesium hydroxide 30ml (MOM) UD suspension PO PRN (14:40)
[2019-07-19] MEDS ORDERED: acetaminophen 325mg tablet PO PRN (14:40)
[2019-07-19] MEDS ORDERED: mag hydrox/Alum hydrox/simeth 30ml oral suspension PO PRN (14:40)
[2019-07-19] MEDS: albuterol 1.25 MG/3 ML (1/2 strength) nebule NEB SCH ×3 (15:00→23:28)
[2019-07-19] MEDS ORDERED: albuterol 2.5 MG/3 ML nebule ONE (16:31)
--- NOTE | 2019-07-19 16:57 | NUR ---
RECEIVED REPORT FROM MIL RN IN ED, ROOM 3022 READY TO RECEIVE PATIENT
[2019-07-19 17:30] VITALS: BP 125/100
--- NOTE | 2019-07-19 17:30 | NUR ---
Patient admitted to PCU 3022 via wheelchair w/ 2 RN, vs taken, oriented to room, call light in reach, all needs met at this time, will continue to monitor.
[2019-07-19 18:00] VITALS: BP 108/57
--- NOTE | 2019-07-19 18:37 | NUR ---
Problems reprioritized. Patient report given, questions answered & plan of care reviewed with Leah BARNETT.
[2019-07-19] MEDS: cefepime 1GM in D5W 50mL 50 ML IV SCH (19:32)
[2019-07-19] MEDS: normal saline 1000ml 1,000 ML IV SCH (19:32)
[2019-07-19] MEDS: heparin, porcine 5000 units/ml vial SQ SCH (20:17)
[2019-07-19 22:00] VITALS: BP 111/44
[2019-07-20] MEDS: cefepime 1GM in D5W 50mL 50 ML IV SCH ×4 (00:02→23:17)
[2019-07-20 02:00] VITALS: BP 123/54
[2019-07-20] MEDS: albuterol 1.25 MG/3 ML (1/2 strength) nebule NEB SCH ×6 (03:19→23:06)
[2019-07-20 05:51] LABS: BASOPHILS # (AUTO) 0.1 X10'3 (0-0.2); BASOPHILS % (AUTO) 0.3 % (0-1); EOSINOPHILS # (AUTO) 0.1 X10'3 (0-0.9); EOSINOPHILS % (AUTO) 0.2 % (0-6); HEMOGLOBIN 10.3 g/dl (12.0-16.0)
[2019-07-20 05:53] LABS: HEMATOCRIT 31.5 % (35.0-45.0); LYMPHOCYTES # (AUTO) 2.2 X10'3 (1.1-4.8); LYMPHOCYTES % (AUTO) 6.5 % (21-51); MEAN CORPUSCULAR HEMOGLOBIN 28.9 PG (27.0-31.0); MEAN CORPUSCULAR HGB CONC 32.7 g/dL (33.0-36.5); MEAN CORPUSCULAR VOLUME 88.4 FL (78-98); MEAN PLATELET VOLUME 7.4 FL (7.4-10.4); NEUTROPHILS # (AUTO) 29.5 X10'3 (1.8-7.7); PLATELET COUNT 751 X10'3 (140-440); RED BLOOD COUNT 3.56 X10'6 (4.20-5.60); RED CELL DISTRIBUTION WIDTH 14.9 % (11.5-14.5)
[2019-07-20 05:59] LABS: WHITE BLOOD COUNT 33.9 X10'3 (4.5-11.0)
[2019-07-20 06:00] VITALS: BP 133/63
[2019-07-20 06:10] LABS: ALBUMIN 1.6 G/DL (3.4-5.0); ANION GAP 8 (8-16); BLOOD UREA NITROGEN 18 MG/DL (7-18); BUN/CREATININE RATIO 18.8 (6.6-38.0); CALCIUM 8.1 MG/DL (8.5-10.1); CHLORIDE 100 MMOL/L (99-107); CREATININE 0.96 MG/DL (0.40-0.90); GLUCOSE 110 MG/DL (70-104); POTASSIUM 4.3 MMOL/L (3.5-5.1); SODIUM 134 MMOL/L (135-145); TOTAL CARBON DIOXIDE 26.5 MMOL/L (24-32); eGFR 56 ML/MIN
[2019-07-20 06:20] LABS: ANISOCYTOSIS 1+; PLATELET ESTIMATE INCREASED; TOTAL CELLS COUNTED 100
[2019-07-20 06:21] LABS: LARGE PLATELETS FEW
--- NOTE | 2019-07-20 06:34 | NUR ---
Problems reprioritized. Patient report given, questions answered & plan of care reviewed with ANIBAL Saldana.
[2019-07-20] MEDS ORDERED: lisinopril 5mg tablet PO SCH (08:05)
[2019-07-20] MEDS: traMADol 50MG tablet PO PRN ×4 (08:56→20:14)
[2019-07-20] MEDS: normal saline 1000ml 1,000 ML IV SCH ×2 (08:57→10:40)
[2019-07-20] MEDS: heparin, porcine 5000 units/ml vial SQ SCH ×2 (09:01→20:00)
[2019-07-20 11:00] VITALS: BP 137/67
[2019-07-20] MEDS: gabapentin 100mg capsule PO SCH ×2 (12:57→20:12)
[2019-07-20] MEDS ORDERED: [UNRECOGNIZED DRUG - OTHER] PO SCH (13:00)
--- NOTE | 2019-07-20 14:52 | NUR ---
Malnutrition consult: Pt admit w/ RLL PNA, possible empyema, HTN, hyponatremia, and neuropathy. PO 100% starch one meal so far this admit placed on vegan/heart healthy diet; RN reports pt is truly vegan. PARVIZ d/w RN regarding MVI/mineral and B12 supplementation if MD agreeable. Noted pt has neuropathy w/ no B12 supplementation on home meds listed. Pt has no significant weakness, no edema/wounds, BMI 23, and appears small framed but no visible wasting per RN. At this time pt does not meet minimum two malnutrition criteria; will continue to monitor. Addendum: 07/20/19 at [address] Amended: Links added.
[2019-07-20 15:00] VITALS: BP 111/55
[2019-07-20 18:00] VITALS: BP 146/67
--- NOTE | 2019-07-20 18:10 | NUR ---
Patient in room PCU 3012. I have received report from ANIBAL Saldana and had the opportunity to ask questions and assume patient care.
[2019-07-20] MEDS: lactobacillus rhamnosus 10,000 MMU CELLS/CAPSULE PO SCH (20:14)
[2019-07-20] MEDS: lisinopril 5mg tablet PO SCH (20:18)
[2019-07-20 22:00] VITALS: BP 131/62
[2019-07-21] VITALS (9 sets, daily range): BP systolic 109–154; BP diastolic 46–77
[2019-07-21] MEDS: albuterol 1.25 MG/3 ML (1/2 strength) nebule NEB SCH ×6 (03:04→23:21)
--- NOTE | 2019-07-21 06:22 | NUR ---
receive report from juan lion
--- NOTE | 2019-07-21 06:31 | NUR ---
Problems reprioritized. Patient report given, questions answered & plan of care reviewed with ANIBAL Alberts.
[2019-07-21 07:08] LABS: BASOPHILS # (AUTO) 0.1 X10'3 (0-0.2); MEAN CORPUSCULAR HGB CONC 32.3 g/dL (33.0-36.5); NEUTROPHILS # (AUTO) 26.3 X10'3 (1.8-7.7)
[2019-07-21 07:10] LABS: BASOPHILS % (AUTO) 0.3 % (0-1); EOSINOPHILS % (AUTO) 0.2 % (0-6); HEMATOCRIT 34.2 % (35.0-45.0); LYMPHOCYTES # (AUTO) 1.9 X10'3 (1.1-4.8); LYMPHOCYTES % (AUTO) 6.1 % (21-51); MEAN CORPUSCULAR HEMOGLOBIN 28.9 PG (27.0-31.0); MEAN CORPUSCULAR VOLUME 89.4 FL (78-98); MEAN PLATELET VOLUME 7.9 FL (7.4-10.4); MONOCYTES # (AUTO) 2.3 X10'3 (0-0.9); MONOCYTES % (AUTO) 7.7 % (2-12); NEUTROPHILS % (AUTO) 85.7 % (42-75); PLATELET COUNT 625 X10'3 (140-440); RED BLOOD COUNT 3.83 X10'6 (4.20-5.60)
[2019-07-21 07:13] LABS: WHITE BLOOD COUNT 30.7 X10'3 (4.5-11.0)
[2019-07-21 07:18] LABS: ALBUMIN 1.5 G/DL (3.4-5.0); ANION GAP 10 (8-16); BLOOD UREA NITROGEN 15 MG/DL (7-18); BUN/CREATININE RATIO 17.9 (6.6-38.0); CALCIUM 8.4 MG/DL (8.5-10.1); CHLORIDE 101 MMOL/L (99-107); CREATININE 0.84 MG/DL (0.40-0.90); GLUCOSE 97 MG/DL (70-104); POTASSIUM 4.3 MMOL/L (3.5-5.1); SODIUM 133 MMOL/L (135-145); TOTAL CARBON DIOXIDE 21.8 MMOL/L (24-32); eGFR 65 ML/MIN
[2019-07-21] MEDS: heparin, porcine 5000 units/ml vial SQ SCH ×2 (08:00→20:17)
[2019-07-21] MEDS: traMADol 50MG tablet PO PRN ×5 (08:37→20:17)
[2019-07-21] MEDS: lactobacillus rhamnosus 10,000 MMU CELLS/CAPSULE PO SCH ×2 (08:39→20:17)
[2019-07-21] MEDS: gabapentin 100mg capsule PO SCH ×3 (08:39→20:17)
[2019-07-21] MEDS: cefepime 1GM in D5W 50mL 50 ML IV SCH ×3 (08:40→23:51)
[2019-07-21 09:55] LABS: PLATELET ESTIMATE INCREASED; TOTAL CELLS COUNTED 100
[2019-07-21] MEDS ORDERED: NORMAL SALINE ICATH ONE (10:05)
[2019-07-21] MEDS ORDERED: FLUSH 4 MG ICATH ONE (10:05)
[2019-07-21] MEDS ORDERED: TPA CATHFLO ICATH ONE (10:05)
[2019-07-21] MEDS ORDERED: furosemide 40mg/4ml inj IV ONE (13:15)
[2019-07-21 14:01] LABS: LACTATE DEHYDROGENASE 249 U/L (81-234)
--- NOTE | 2019-07-21 14:46 | NUR ---
PRESSURE ULCER EDUCATION: DEFINITION: A pressure ulcer is an area of skin that breaks down when you stay in one position too long. The constant pressure against the skin reduces the blood flow to that area and the affected tissue dies. CAUSES: "Being bedridden or in a wheelchair "Fragile skin "Having a chronic condition, such as diabetes or vascular disease "Inability to move certain parts of your body without assistance "Older age "Incontinence of urine or stool SYMPTOMS: "A reddened area that DOES NOT turn white when pressed on - this can be the beginning of a pressure ulcer "A blister, deep sore or a crater - these can be advanced pressure ulcers FIRST AID: "Relieve the pressure on this area "Keep the area clean and dry "Call your primary doctor if you see any of the above symptoms "DO NOT massage the area "DO NOT use a donut shaped or ring shaped pillow- these actually interfere with the blood flow and cause complications PREVENTION: "Check for pressure ulcers everyday "Change position at least every two hours to relieve pressure "Use items that help relieve pressure- pillows, sheepskin, foam padding, and powders. "Keep skin clean and dry "Eat healthy well balanced meals "Exercise daily IF YOU SEE ANY OF THESE SYMPTOMS WHILE IN THE HOSPITAL - TELL YOUR NURSE IMMEDIATELY. IF YOU SEE ANY OF THESE SYMPTOMS WHILE AT HOME OR HAVE ANY QUESTIONS OR CONCERNS ABOUT PRESSURE ULCERS - CALL YOUR PRIMARY DOCTOR IMMEDIATELY. Addendum: 07/21/19 at 1446 by Clementine Villa RN Amended: Links added.
--- NOTE | 2019-07-21 14:49 | NUR ---
spoke w/wound care on phone and wound care said not to change wounds because wound care was going to take care of them tomorrow
[2019-07-21 17:17] LABS: LDH,BODY FLUID 677 U/L; TOTAL PROTEIN,BODY FLUID 4.7 G/DL
[2019-07-21 18:03] LABS: BFAPPEAR BLOODY
[2019-07-21 18:05] LABS: BF WBC COUNT 26325 /CU MM (0-1000); BFCOLOR RED; BFVOLUME 2 ML
[2019-07-21 18:06] LABS: BF RBC COUNT 4029750 /CU MM; EOSINOPHILS,BODY FLUID 1 %; LYMPHOCYTES,BODY FLUID 5 %; MONOCYTES,BODY FLUID 6 %; NEUTROPHILS,BODY FLUID 88 %
--- NOTE | 2019-07-21 18:20 | NUR ---
RECEIVED REPORT FROM IFEOMA BARNETT AND ASSUMED PATIENT CARE
--- NOTE | 2019-07-21 18:45 | NUR ---
gave report to juan mccabe
[2019-07-21] MEDS: lisinopril 5mg tablet PO SCH (20:17)
[2019-07-22 03:00] VITALS: BP 110/77
[2019-07-22] MEDS: albuterol 1.25 MG/3 ML (1/2 strength) nebule NEB SCH ×6 (03:03→22:33)
[2019-07-22 06:15] LABS: EOSINOPHILS # (AUTO) 0.1 X10'3 (0-0.9); EOSINOPHILS % (AUTO) 0.3 % (0-6); HEMATOCRIT 32.3 % (35.0-45.0); MEAN PLATELET VOLUME 7.8 FL (7.4-10.4); MONOCYTES # (AUTO) 2.4 X10'3 (0-0.9)
[2019-07-22 06:18] LABS: BASOPHILS # (AUTO) 0.1 X10'3 (0-0.2); BASOPHILS % (AUTO) 0.4 % (0-1); HEMOGLOBIN 10.2 g/dl (12.0-16.0); LYMPHOCYTES # (AUTO) 2.4 X10'3 (1.1-4.8); MEAN CORPUSCULAR HEMOGLOBIN 28.1 PG (27.0-31.0); MEAN CORPUSCULAR HGB CONC 31.7 g/dL (33.0-36.5); MEAN CORPUSCULAR VOLUME 88.6 FL (78-98); NEUTROPHILS % (AUTO) 85.3 % (42-75); PLATELET COUNT 685 X10'3 (140-440); RED BLOOD COUNT 3.65 X10'6 (4.20-5.60); RED CELL DISTRIBUTION WIDTH 15.4 % (11.5-14.5)
[2019-07-22 06:22] LABS: ALBUMIN 1.5 G/DL (3.4-5.0); ANION GAP 8 (8-16); BLOOD UREA NITROGEN 21 MG/DL (7-18); BUN/CREATININE RATIO 18.1 (6.6-38.0); CALCIUM 8.9 MG/DL (8.5-10.1); CHLORIDE 102 MMOL/L (99-107); CREATININE 1.16 MG/DL (0.40-0.90); GLUCOSE 112 MG/DL (70-104); POTASSIUM 4.3 MMOL/L (3.5-5.1); SODIUM 136 MMOL/L (135-145); TOTAL CARBON DIOXIDE 26.5 MMOL/L (24-32); eGFR 45 ML/MIN
[2019-07-22 06:35] LABS: WHITE BLOOD COUNT 35.1 X10'3 (4.5-11.0)
--- NOTE | 2019-07-22 06:39 | NUR ---
Patient in room PCU 3022. I have received report from ANIBAL Hester and had the opportunity to ask questions and assume patient care.
--- NOTE | 2019-07-22 06:45 | NUR ---
notified PAGER ID: [phone] MESSAGE: 3022 Irene Santosmons. FYI Critical WBC 35.1 up from 30.7. On IV cefepime. Thank you jay jay BARNETT ext [phone]
[2019-07-22 07:07] VITALS: BP 115/49
[2019-07-22] MEDS: gabapentin 100mg capsule PO SCH ×3 (07:39→20:41)
[2019-07-22] MEDS: lactobacillus rhamnosus 10,000 MMU CELLS/CAPSULE PO SCH ×2 (07:39→19:29)
[2019-07-22] MEDS: cefepime 1GM in D5W 50mL 50 ML IV SCH ×3 (07:39→23:27)
[2019-07-22] MEDS: traMADol 50MG tablet PO PRN ×5 (07:40→20:41)
[2019-07-22] MEDS: heparin, porcine 5000 units/ml vial SQ SCH ×2 (07:45→19:29)
[2019-07-22] MEDS ORDERED: TPA CATHFLO ICATH ONE (09:00)
[2019-07-22] MEDS ORDERED: NORMAL SALINE ICATH ONE (09:00)
[2019-07-22] MEDS ORDERED: FLUSH 4 MG ICATH ONE (09:00)
[2019-07-22 09:54] LABS: TOTAL CELLS COUNTED 100
[2019-07-22 09:55] LABS: PLATELET ESTIMATE INCREASED
[2019-07-22 11:00] VITALS: BP 101/52
--- NOTE | 2019-07-22 11:15 | NUR ---
Angio PA flushed and pulled back chest tube. Changed dressing. Acquired pleural fluid for culture. Placed TPa in chest tube line, keep clamped until around 1700 per orders.
[2019-07-22] MEDS ORDERED: furosemide 40mg/4ml inj IV ONE (13:20)
[2019-07-22 15:00] VITALS: BP 91/52
--- NOTE | 2019-07-22 18:32 | NUR ---
Problems reprioritized. Patient report given, questions answered & plan of care reviewed with ANIBAL Hester.
[2019-07-22 19:00] VITALS: BP 91/57
[2019-07-22] MEDS: lisinopril 5mg tablet PO SCH (19:15)
--- NOTE | 2019-07-22 20:02 | NUR ---
Upon assessment patient noted have some yellow pus drainage around Chest tube site. Atrium noted to have sanguinous drainage and tubing noted to have yellow pus. Chest tube is to suction at 20. Will continue with care.
[2019-07-22] MEDS: vancomycin/NS 1 GM ADD-VANTAGE 250 ML IV SCH (21:16)
[2019-07-22 23:00] VITALS: BP 94/64
--- NOTE | 2019-07-22 23:55 | NUR ---
Clean catch UA collected and sent to lab.
[2019-07-23] MEDS: albuterol 1.25 MG/3 ML (1/2 strength) nebule NEB SCH ×6 (02:38→23:59)
[2019-07-23 03:00] VITALS: BP 102/53
[2019-07-23 05:43] LABS: BASOPHILS # (AUTO) 0.1 X10'3 (0-0.2); BASOPHILS % (AUTO) 0.5 % (0-1); EOSINOPHILS # (AUTO) 0.1 X10'3 (0-0.9); HEMOGLOBIN 9.8 g/dl (12.0-16.0); MEAN PLATELET VOLUME 7.8 FL (7.4-10.4); MONOCYTES # (AUTO) 1.9 X10'3 (0-0.9)
[2019-07-23 05:45] LABS: EOSINOPHILS % (AUTO) 0.2 % (0-6); HEMATOCRIT 31.1 % (35.0-45.0); LYMPHOCYTES # (AUTO) 2.2 X10'3 (1.1-4.8); LYMPHOCYTES % (AUTO) 8.2 % (21-51); MEAN CORPUSCULAR HEMOGLOBIN 28.1 PG (27.0-31.0); MEAN CORPUSCULAR HGB CONC 31.6 g/dL (33.0-36.5); NEUTROPHILS # (AUTO) 22.5 X10'3 (1.8-7.7); NEUTROPHILS % (AUTO) 84.1 % (42-75); PLATELET COUNT 723 X10'3 (140-440); RED BLOOD COUNT 3.49 X10'6 (4.20-5.60); RED CELL DISTRIBUTION WIDTH 15.5 % (11.5-14.5)
[2019-07-23 05:57] LABS: WHITE BLOOD COUNT 26.8 X10'3 (4.5-11.0)
[2019-07-23 05:58] LABS: ALBUMIN 1.4 G/DL (3.4-5.0); ANION GAP 4 (8-16); BLOOD UREA NITROGEN 27 MG/DL (7-18); BUN/CREATININE RATIO 21.6 (6.6-38.0); CALCIUM 8.5 MG/DL (8.5-10.1); CHLORIDE 103 MMOL/L (99-107); CREATININE 1.25 MG/DL (0.40-0.90); GLUCOSE 107 MG/DL (70-104); POTASSIUM 4.7 MMOL/L (3.5-5.1); SODIUM 137 MMOL/L (135-145); TOTAL CARBON DIOXIDE 29.7 MMOL/L (24-32); eGFR 41 ML/MIN
--- NOTE | 2019-07-23 06:44 | NUR ---
Patient in room PCU 3022. I have received report from ANIBAL Hester and had the opportunity to ask questions and assume patient care.
[2019-07-23 07:00] VITALS: BP 101/56
[2019-07-23 09:07] LABS: PLATELET ESTIMATE INCREASED; TOTAL CELLS COUNTED 100
[2019-07-23] MEDS: traMADol 50MG tablet PO PRN ×4 (09:12→21:07)
[2019-07-23] MEDS: gabapentin 100mg capsule PO SCH ×2 (10:17→12:29)
[2019-07-23] MEDS: lactobacillus rhamnosus 10,000 MMU CELLS/CAPSULE PO SCH ×2 (10:18→19:32)
[2019-07-23] MEDS: cefepime 1GM in D5W 50mL 50 ML IV SCH ×3 (10:18→23:35)
[2019-07-23] MEDS: heparin, porcine 5000 units/ml vial SQ SCH ×2 (10:19→19:33)
[2019-07-23] MEDS ORDERED: NORMAL SALINE ICATH ONE (10:30)
[2019-07-23] MEDS ORDERED: TPA CATHFLO ICATH ONE (10:30)
[2019-07-23] MEDS ORDERED: FLUSH 4 MG ICATH ONE (10:30)
[2019-07-23] MEDS ORDERED: tPA-cathflo 2mg/2ml IV flush 4 MG in normal saline 100ml IV soln 50 ML ICATH ONE (10:35)
[2019-07-23 11:00] VITALS: BP 99/38
[2019-07-23 15:00] VITALS: BP 125/54
[2019-07-23] MEDS: HYDROcodone/acetaminophen 5mg/325mg tablet PO PRN (18:02)
--- NOTE | 2019-07-23 18:03 | NUR ---
New orders from Toño for norco 5 PRN q 6
--- NOTE | 2019-07-23 18:09 | NUR ---
Problems reprioritized. Patient report given, questions answered & plan of care reviewed with ANIBAL Bonner.
[2019-07-23] MEDS: vancomycin/NS 1 GM ADD-VANTAGE 250 ML IV SCH (19:32)
[2019-07-23 19:34] VITALS: BP 96/50
[2019-07-23] MEDS: lisinopril 5mg tablet PO SCH (19:34)
[2019-07-23 22:00] VITALS: BP 116/68
[2019-07-24] VITALS (16 sets, daily range): BP systolic 93–243; BP diastolic 50–98
[2019-07-24] MEDS: HYDROcodone/acetaminophen 5mg/325mg tablet PO PRN (00:20)
[2019-07-24] MEDS: albuterol 1.25 MG/3 ML (1/2 strength) nebule NEB SCH ×6 (03:50→23:19)
[2019-07-24 05:31] LABS: EOSINOPHILS # (AUTO) 0.1 X10'3 (0-0.9); HEMOGLOBIN 9.8 g/dl (12.0-16.0)
[2019-07-24 05:34] LABS: BASOPHILS # (AUTO) 0.2 X10'3 (0-0.2); BASOPHILS % (AUTO) 0.9 % (0-1); EOSINOPHILS % (AUTO) 0.3 % (0-6); HEMATOCRIT 30.7 % (35.0-45.0); LYMPHOCYTES # (AUTO) 2.4 X10'3 (1.1-4.8); LYMPHOCYTES % (AUTO) 8.8 % (21-51); MEAN CORPUSCULAR HEMOGLOBIN 28.4 PG (27.0-31.0); MONOCYTES % (AUTO) 3.8 % (2-12); NEUTROPHILS # (AUTO) 23.7 X10'3 (1.8-7.7); NEUTROPHILS % (AUTO) 86.2 % (42-75); PLATELET COUNT 717 X10'3 (140-440); RED BLOOD COUNT 3.45 X10'6 (4.20-5.60); RED CELL DISTRIBUTION WIDTH 15.5 % (11.5-14.5)
[2019-07-24 05:43] LABS: ALBUMIN 1.4 G/DL (3.4-5.0); ANION GAP 7 (8-16); BLOOD UREA NITROGEN 30 MG/DL (7-18); BUN/CREATININE RATIO 21.6 (6.6-38.0); CALCIUM 8.7 MG/DL (8.5-10.1); CHLORIDE 102 MMOL/L (99-107); CREATININE 1.39 MG/DL (0.40-0.90); GLUCOSE 109 MG/DL (70-104); POTASSIUM 5.2 MMOL/L (3.5-5.1); SODIUM 135 MMOL/L (135-145); TOTAL CARBON DIOXIDE 26.1 MMOL/L (24-32); eGFR 36 ML/MIN
[2019-07-24 06:06] LABS: WHITE BLOOD COUNT 27.5 X10'3 (4.5-11.0)
--- NOTE | 2019-07-24 06:18 | NUR ---
Patient in room [facility] 2013. I have received report from Greg BARNETT, and had the opportunity to ask questions and assume patient care. Addendum: 07/25/19 at 0632 by Sana Muñoz RN Wring time. Correct time is 7189
--- NOTE | 2019-07-24 06:31 | NUR ---
Paged Dr. Betancur. PAGER ID: [phone] MESSAGE: Pt in RM 3022 : Ileana Stanley has a critical lab value WBC : 27.5. Dx : R Lung Pleural Effusion, Empyema. Pt is currently on Vancomycin & Cefepime ABX. Thanks! .. Kailey/Savita castellanos [phone]
--- NOTE | 2019-07-24 06:32 | NUR ---
Problems reprioritized. Patient report given, questions answered & plan of care reviewed with ANIBAL Barney.
--- NOTE | 2019-07-24 07:18 | NUR ---
Patient in room PCU 3022. I have received report from Fabiana BARNETT and had the opportunity to ask questions and assume patient care.
[2019-07-24] MEDS: gabapentin 100mg capsule PO SCH (07:28)
[2019-07-24] MEDS: cefepime 1GM in D5W 50mL 50 ML IV SCH (07:28)
[2019-07-24] MEDS: lactobacillus rhamnosus 10,000 MMU CELLS/CAPSULE PO SCH ×2 (07:28→20:56)
[2019-07-24] MEDS: traMADol 50MG tablet PO PRN (07:28)
[2019-07-24 07:35] LABS: PLATELET ESTIMATE INCREASED; TOTAL CELLS COUNTED 100
[2019-07-24] MEDS: heparin, porcine 5000 units/ml vial SQ SCH ×2 (08:00→20:00)
[2019-07-24] MEDS ORDERED: famotidine/PF 10 mg/ml inj IV ONE (11:00)
--- NOTE | 2019-07-24 11:30 | NUR ---
patient left to OR at 1130, patient left in stable condition. 1 liter of NS hanging with extension tubing attached. Blood sugar at 1130 was 85. All questions answered.
[2019-07-24 11:43] LABS: PARTIAL THROMBOPLASTIN TIME 32 SECONDS (22-32)
[2019-07-24] MEDS ORDERED: LIDOcaine 4% (40 mg/ml) topical solution 50ml TP ONE (12:20)
[2019-07-24] MEDS ORDERED: sevoflurane 250ml liquid IH ONE (12:40)
[2019-07-24] MEDS ORDERED: phenylephrine 10mg/ml inj. ONE ×2 (12:40→14:01)
[2019-07-24] MEDS ORDERED: midazolam 2 mg/2 ml injection ONE (12:48)
[2019-07-24] MEDS ORDERED: ringers solution, lacted 1,000 ML IV SCH (13:52)
[2019-07-24] MEDS ORDERED: ondansetron/PF 4mg/2ml inj IV PRN ×2 (13:55→15:55)
[2019-07-24] MEDS ORDERED: proCHLORperazine 10 MG/2 ml inj IV PRN (13:55)
[2019-07-24] MEDS ORDERED: morphine 4 MG/ML inj SYRINge IV PRN ×3 (13:55→16:25)
[2019-07-24] MEDS ORDERED: labetalol 20mg/4ml (5mg/ml) syringe IV PRN (13:55)
[2019-07-24] MEDS ORDERED: fentaNYL/PF 50MCG/1 ML 2ML syringe IV PRN ×2 (13:55→16:25)
[2019-07-24] MEDS ORDERED: morphine 2 MG/ML inj. syringe IV PRN ×2 (13:55→16:25)
[2019-07-24] MEDS ORDERED: hydrALAZINE 20mg/ml inj. IV PRN (13:55)
[2019-07-24] MEDS ORDERED: midazolam 2 mg/2 ml injection IV ONE (13:55)
[2019-07-24] MEDS ORDERED: HYDROmorphone inj. 0.5 MG/0.5 ML DISP.SYRIN IV PRN ×2 (13:55)
[2019-07-24] MEDS ORDERED: propofol inj 20 ML IV ONE (14:01)
[2019-07-24] MEDS ORDERED: LIDOcaine 2% (20mg/ml) 5ml vial ONE (14:01)
[2019-07-24] MEDS ORDERED: rocuronium 10mg/ml inj IV ONE ×2 (14:01→15:39)
[2019-07-24] MEDS ORDERED: fentaNYL /PF 50mcg/ml 5ml ampule ONE (14:01)
[2019-07-24] MEDS ORDERED: ceFAZolin 1000mg inj ONE ×2 (14:01)
[2019-07-24] MEDS ORDERED: dexamethasone sod phosphate 4mg/ml inj. ONE (14:25)
[2019-07-24] MEDS ORDERED: ondansetron/PF 4mg/2ml inj ONE (14:25)
[2019-07-24] MEDS ORDERED: NORepinephrine 1 mg/ml inj IV ONE ×2 (14:42)
[2019-07-24] MEDS ORDERED: albuterol 2.5 MG/3 ML nebule NEB PRN (15:55)
[2019-07-24] MEDS ORDERED: metoclopramide 5 mg/ml inj IV PRN (15:55)
[2019-07-24] MEDS ORDERED: CADD PCA waste documentation MC PRN (15:55)
[2019-07-24] MEDS ORDERED: naloxone 0.4 mg/ml inj IV PRN (15:55)
[2019-07-24] MEDS ORDERED: HYDROcodone/acetaminophen 10/325mg tab PO PRN ×2 (15:55)
[2019-07-24] MEDS ORDERED: ceFAZolin inj. 1,000 MG in dextrose 5%-water 50ml 50 ML IV SCH (16:00)
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
[2019-07-24] MEDS ORDERED: midazolam 100mg in NS 100ml 100 ML IV PRN (16:32)
[2019-07-24] MEDS: morphine 4 MG/ML inj SYRINge IV PRN (16:37)
[2019-07-24] MEDS: FENTANYL-0.9 % NACL/PF 100 ML IV PRN (17:03)
--- NOTE | 2019-07-24 17:22 | NUR ---
CALLED DR SCHERER AND UPDATED REGARDING NEW PNEUMOTHORAX, CLARIFIED VERBAL ORDER FOR CT TO WATER SEAL, Report called to receiving nurse. Transferred via BED ON CM, RT BAGGED PT, RECEIVING RN AT BEDSIDE TO RECEIVE PT, NO Belongings. Special Issues communicated to receiving nurse. YES. Addendum: 07/24/19 at 1751 by Mya Nelson RN Amended: Links added.
[2019-07-24] MEDS: lisinopril 5mg tablet PO SCH (20:00)
[2019-07-24] MEDS ORDERED: dextrose 50%-water 50ml dispensing syringe IV ONE ×2 (20:47→20:50)
[2019-07-24] MEDS: gabapentin 300mg capsule PO SCH (20:55)
[2019-07-24] MEDS: dextrose 5%-normal saline 1,000 ML IV SCH (20:56)
[2019-07-25] VITALS (27 sets, daily range): BP systolic 85–120; BP diastolic 41–74
[2019-07-25 02:41] LABS: BASOPHILS # (AUTO) 0.1 X10'3 (0-0.2); BASOPHILS % (AUTO) 0.2 % (0-1); EOSINOPHILS % (AUTO) 0 % (0-6); HEMOGLOBIN 8.8 g/dl (12.0-16.0); NEUTROPHILS # (AUTO) 41.1 X10'3 (1.8-7.7)
[2019-07-25 02:48] LABS: HEMATOCRIT 27.4 % (35.0-45.0); LYMPHOCYTES # (AUTO) 1.4 X10'3 (1.1-4.8); LYMPHOCYTES % (AUTO) 3.1 % (21-51); MEAN CORPUSCULAR HEMOGLOBIN 28.3 PG (27.0-31.0); MEAN CORPUSCULAR VOLUME 88.4 FL (78-98); MEAN PLATELET VOLUME 7.4 FL (7.4-10.4); MONOCYTES # (AUTO) 1.3 X10'3 (0-0.9); MONOCYTES % (AUTO) 2.9 % (2-12); NEUTROPHILS % (AUTO) 93.8 % (42-75); PLATELET COUNT 718 X10'3 (140-440); RED CELL DISTRIBUTION WIDTH 15.7 % (11.5-14.5)
[2019-07-25 02:54] LABS: WHITE BLOOD COUNT 43.8 X10'3 (4.5-11.0)
[2019-07-25 03:03] LABS: ALANINE AMINOTRANSFERASE 11 U/L (12-78); ALBUMIN 1.2 G/DL (3.4-5.0); ALBUMIN/GLOBULIN RATIO 0.3 (1.1-1.5); ALKALINE PHOSPHATASE 287 IU/L (46-116); ANION GAP 6 (8-16); ASPARTATE AMINO TRANSFERASE 33 U/L (10-37); BILIRUBIN,TOTAL 0.4 MG/DL (0.1-1.0); BLOOD UREA NITROGEN 32 MG/DL (7-18); BUN/CREATININE RATIO 26.2 (6.6-38.0); CALCIUM 7.4 MG/DL (8.5-10.1); CHLORIDE 105 MMOL/L (99-107); CREATININE 1.22 MG/DL (0.40-0.90); GLUCOSE 196 MG/DL (70-104); MAGNESIUM 1.7 MG/DL (1.5-2.4); POTASSIUM 5.2 MMOL/L (3.5-5.1); SODIUM 135 MMOL/L (135-145); TOTAL CARBON DIOXIDE 24.1 MMOL/L (24-32); TOTAL PROTEIN 5.2 G/DL (6.4-8.2); eGFR 42 ML/MIN
[2019-07-25] MEDS: albuterol 1.25 MG/3 ML (1/2 strength) nebule NEB SCH ×6 (03:25→23:03)
[2019-07-25 03:34] LABS: PLATELET ESTIMATE INCREASED; TOTAL CELLS COUNTED 100
[2019-07-25 03:35] LABS: ANISOCYTOSIS 2+; HYPOCHROMASIA 1+
[2019-07-25 04:15] LABS: ABG BASE EXCESS -2.1 mmol/L (-2.0-3.0); ABG HCO3 22.8 mmol/L (22.0-26.0); ABG OXYGEN SATURATION 96.1 % (95-98); ABG PO2 (T) 82.3 mmHg (83-108); FCOHb 0.3 % (0.5-1.5); FMetHb 0.3 % (0.3-1.12); FO2Hb 95.5 % (94-100); PATIENT TEMPERATURE 36.1; PEEP 8 cm H2O; RESPIRATORY RATE 14 b/min; TIDAL VOLUME 400 mL; TOTAL HEMOGLOBIN 9.6 G/dl (12.0-16.0)
[2019-07-25] MEDS: FENTANYL-0.9 % NACL/PF 100 ML IV PRN (05:57)
--- NOTE | 2019-07-25 06:15 | NUR ---
Patient in room CICU 2013. I have received report from HS RN and had the opportunity to ask questions and assume patient care.
--- NOTE | 2019-07-25 06:18 | NUR ---
Problems reprioritized. Patient report given, questions answered & plan of care reviewed with Verito BARNETT.
[2019-07-25] MEDS: dextrose 5%-normal saline 1,000 ML IV SCH ×2 (06:49→19:57)
--- NOTE | 2019-07-25 07:15 | NUR ---
PER md - if am cxr is ok place chest tube to wall suction. turn off sedation. Plan to extubate this am.
[2019-07-25] MEDS: CefTRIAXone 2gm/D5W 50ml 50 ML IV SCH (07:40)
[2019-07-25] MEDS: heparin, porcine 5000 units/ml vial SQ SCH ×2 (07:41→20:24)
[2019-07-25] MEDS: gabapentin 300mg capsule PO SCH ×2 (07:41→20:23)
[2019-07-25] MEDS: lactobacillus rhamnosus 10,000 MMU CELLS/CAPSULE PO SCH ×2 (07:42→20:23)
[2019-07-25] MEDS: NORepinephrine 8mg/ 250ml NS 250 ML IV SCH (08:54)
--- NOTE | 2019-07-25 10:10 | NUR ---
Orders received from DR Ivy to lower rate of d5 ns to 70 pertaining to 3 consequutive high blood sugars.
--- NOTE | 2019-07-25 10:15 | NUR ---
Per md chest tube to wall suction after extubation, turn peep to 5.
[2019-07-25] MEDS ORDERED: mineral oil/petrolatum ophthal oint EACHEYE SCH (14:00)
--- NOTE | 2019-07-25 14:14 | NUR ---
Initial: Pt is on clear liquid diet s/p thoracotomy and bronchoscopy with decortication on 07/23. Previously pt on vegetarian diet. Pt was mechanically ventilated, pending extubation. Eating poorly prior to surgery, average PO 25-49% intake. Last BM 5 days ago, has prn milk of anna ragland/w ANIBAL. Recommend: 1. advance diet as medically indicated to vegetarian per pt preference 2. encourage protein intake 3. provide written high protein education handout with verbal review 4. routine bowel care for bowel regularity 5. weight per rx Addendum: 07/25/19 at [address] Amended: Links added.
--- NOTE | 2019-07-25 16:50 | NUR ---
PT is awake, opening eyes, following commands, off levophed. RT notified and present. Vent weaning parameters being done.
--- NOTE | 2019-07-25 17:17 | NUR ---
RT present, spoke with evie MCGINNIS to extubate. PT extubated at 1704 without complication, PT placed on 4L o2 NC.
--- NOTE | 2019-07-25 18:20 | NUR ---
Problems reprioritized. Patient report given, questions answered & plan of care reviewed with marble machine tender RN.
[2019-07-25] MEDS ORDERED: VANCOMYCIN LEVEL IV ONE (19:30)
[2019-07-25] MEDS: lisinopril 5mg tablet PO SCH (20:00)
[2019-07-25] MEDS: morphine/NS 5 mg/ml CADD 50 ML IV SCH ×3 (20:06→23:00)
[2019-07-26] VITALS (25 sets, daily range): BP systolic 92–131; BP diastolic 44–57
[2019-07-26] MEDS: morphine/NS 5 mg/ml CADD 50 ML IV SCH ×12 (01:00→23:00)
[2019-07-26 03:02] LABS: BASOPHILS # (AUTO) 0.1 X10'3 (0-0.2); BASOPHILS % (AUTO) 0.5 % (0-1); EOSINOPHILS % (AUTO) 0.2 % (0-6); HEMATOCRIT 22.6 % (35.0-45.0); HEMOGLOBIN 7.3 g/dl (12.0-16.0); LYMPHOCYTES # (AUTO) 2.4 X10'3 (1.1-4.8); LYMPHOCYTES % (AUTO) 8.8 % (21-51); MEAN CORPUSCULAR HEMOGLOBIN 28.8 PG (27.0-31.0); MEAN CORPUSCULAR HGB CONC 32.4 g/dL (33.0-36.5); MEAN PLATELET VOLUME 7.3 FL (7.4-10.4); MONOCYTES # (AUTO) 1.6 X10'3 (0-0.9); MONOCYTES % (AUTO) 5.9 % (2-12); NEUTROPHILS # (AUTO) 23.4 X10'3 (1.8-7.7); NEUTROPHILS % (AUTO) 84.6 % (42-75); PLATELET COUNT 587 X10'3 (140-440); RED BLOOD COUNT 2.54 X10'6 (4.20-5.60); RED CELL DISTRIBUTION WIDTH 15.5 % (11.5-14.5)
[2019-07-26 03:12] LABS: ALANINE AMINOTRANSFERASE 15 U/L (12-78); ALBUMIN/GLOBULIN RATIO 0.3 (1.1-1.5); ALKALINE PHOSPHATASE 225 IU/L (46-116); ANION GAP 7 (8-16); ASPARTATE AMINO TRANSFERASE 30 U/L (10-37); BILIRUBIN,TOTAL 0.2 MG/DL (0.1-1.0); BLOOD UREA NITROGEN 36 MG/DL (7-18); BUN/CREATININE RATIO 27.3 (6.6-38.0); CALCIUM 7.5 MG/DL (8.5-10.1); CHLORIDE 108 MMOL/L (99-107); CREATININE 1.32 MG/DL (0.40-0.90); GLUCOSE 131 MG/DL (70-104); POTASSIUM 4.8 MMOL/L (3.5-5.1); SODIUM 139 MMOL/L (135-145); TOTAL CARBON DIOXIDE 24.1 MMOL/L (24-32); TOTAL PROTEIN 4.8 G/DL (6.4-8.2); eGFR 39 ML/MIN
[2019-07-26 03:17] LABS: WHITE BLOOD COUNT 27.7 X10'3 (4.5-11.0)
[2019-07-26] MEDS: albuterol 1.25 MG/3 ML (1/2 strength) nebule NEB SCH ×5 (03:39→22:55)
[2019-07-26] MEDS: dextrose 5%-normal saline 1,000 ML IV SCH ×3 (05:00→22:33)
[2019-07-26 06:02] LABS: ANISOCYTOSIS 1+; PLATELET ESTIMATE INCREASED; TOTAL CELLS COUNTED 100
[2019-07-26 06:03] LABS: HYPOCHROMASIA 1+; SMUDGE CELLS 1+
[2019-07-26 06:05] LABS: LARGE PLATELETS FEW
--- NOTE | 2019-07-26 06:25 | NUR ---
Patient in room CICU 2013. I have received report from Renzo and had the opportunity to ask questions and assume patient care.
[2019-07-26] MEDS: heparin, porcine 5000 units/ml vial SQ SCH ×2 (07:47→21:02)
[2019-07-26] MEDS: CefTRIAXone 2gm/D5W 50ml 50 ML IV SCH (07:48)
[2019-07-26] MEDS: lactobacillus rhamnosus 10,000 MMU CELLS/CAPSULE PO SCH ×2 (07:48→21:01)
[2019-07-26] MEDS: gabapentin 300mg capsule PO SCH (07:48)
[2019-07-26] MEDS ORDERED: HYDROcodone/acetaminophen 5mg/325mg tablet PO PRN (11:50)
[2019-07-26 14:25] LABS: ABG HCO3 20.2 mmol/L (22.0-26.0); ABG OXYGEN SATURATION 96.6 % (95-98); ABG PCO2 (T) 34.1 mmHg (35.0-45.0); ABG PO2 (T) 89.6 mmHg (83-108); ALLEN'S TEST POSITIVE; FCOHb 0.3 % (0.5-1.5); FLOW 10 L/min; FMetHb 0.1 % (0.3-1.12); FO2Hb 96.2 % (94-100); TOTAL HEMOGLOBIN 11.5 G/dl (12.0-16.0)
--- NOTE | 2019-07-26 15:45 | NUR ---
Patient up to chair after working with Physical Therapy. On 3L NC. HR and 02 demand increased. Shallow breathing with increased coarse breath sounds throughout RT Chest noted on assessment. Chest tube dressing site dry and intact, on wall suction, output for day shift up to 1400 at 120 mls. Increased 02 to 4L and then up to 5L NC. No improvement. Simple mask placed on 10L. RT notified , ABG done, PT placed on 8L HF NC. Chest X-Ray done. DR Lyles notified of changes and stated to have Derrick Boat Leverman consult. DR Munson notified. Orders recieved to place PT on Bi-Pap. MD now present.
--- NOTE | 2019-07-26 16:49 | NUR ---
PT resting comfortably on BI-PAP. HR has decreased and 02 Sats have gone up.
--- NOTE | 2019-07-26 18:27 | NUR ---
Problems reprioritized. Patient report given, questions answered & plan of care reviewed with highway maintainer RN.
[2019-07-26 18:47] LABS: HEMATOCRIT 24.1 % (35.0-45.0); HEMOGLOBIN 7.6 g/dl (12.0-16.0); MEAN CORPUSCULAR HEMOGLOBIN 28.1 PG (27.0-31.0); MEAN CORPUSCULAR HGB CONC 31.7 g/dL (33.0-36.5); MEAN CORPUSCULAR VOLUME 88.7 FL (78-98); MEAN PLATELET VOLUME 7.2 FL (7.4-10.4); PLATELET COUNT 547 X10'3 (140-440); RED BLOOD COUNT 2.71 X10'6 (4.20-5.60); RED CELL DISTRIBUTION WIDTH 15.6 % (11.5-14.5); WHITE BLOOD COUNT 23.7 X10'3 (4.5-11.0)
[2019-07-26 19:03] LABS: ALANINE AMINOTRANSFERASE 9 U/L (12-78); ALBUMIN 1.1 G/DL (3.4-5.0); ALBUMIN/GLOBULIN RATIO 0.3 (1.1-1.5); ALKALINE PHOSPHATASE 294 IU/L (46-116); ANION GAP 5 (8-16); ASPARTATE AMINO TRANSFERASE 26 U/L (10-37); BILIRUBIN,TOTAL 0.2 MG/DL (0.1-1.0); BLOOD UREA NITROGEN 32 MG/DL (7-18); BUN/CREATININE RATIO 30.2 (6.6-38.0); CHLORIDE 109 MMOL/L (99-107); CREATININE 1.06 MG/DL (0.40-0.90); GLUCOSE 105 MG/DL (70-104); MAGNESIUM 1.9 MG/DL (1.5-2.4); POTASSIUM 4.7 MMOL/L (3.5-5.1); SODIUM 140 MMOL/L (135-145); TOTAL PROTEIN 5.2 G/DL (6.4-8.2); eGFR 50 ML/MIN
[2019-07-26] MEDS ORDERED: magnesium 2GM in 50ml NS 50 ML IV ONE (19:45)
[2019-07-26] MEDS ORDERED: ketorolac tromethamine 15mg/ml inj. IV PRN (19:45)
[2019-07-26] MEDS ORDERED: ketorolac tromethamine 15mg/ml inj. IV SCH (20:00)
[2019-07-26] MEDS: lisinopril 5mg tablet PO SCH (20:00)
[2019-07-26] MEDS: docusate sodium 100mg/10ml UD cup PO SCH (21:00)
[2019-07-26] MEDS: methylnaltrexone br 12mg/0.6ml inj***SubQ only SQ SCH (21:00)
[2019-07-26] MEDS: ondansetron/PF 4mg/2ml inj IV PRN (21:45)
[2019-07-26] MEDS ORDERED: furosemide 20 MG/2 ML vial IV ONE (22:20)
[2019-07-26] MEDS ORDERED: furosemide 40mg/4ml inj ONE (22:26)
[2019-07-26 22:31] LABS: ABG HCO3 20.3 mmol/L (22.0-26.0); ABG OXYGEN SATURATION 91.6 % (95-98); ABG PCO2 (T) 48.8 mmHg (35.0-45.0); ABG PO2 (T) 75.5 mmHg (83-108); ALLEN'S TEST POSITIVE; FCOHb 0.3 % (0.5-1.5); FMetHb 0.1 % (0.3-1.12); FO2Hb 91.2 % (94-100); PATIENT TEMPERATURE 36.7; RESPIRATORY RATE 12 b/min; TOTAL HEMOGLOBIN 9.1 G/dl (12.0-16.0)
[2019-07-27] VITALS (24 sets, daily range): BP systolic 85–127; BP diastolic 33–61
[2019-07-27] MEDS: morphine/NS 5 mg/ml CADD 50 ML IV SCH ×12 (01:00→23:00)
[2019-07-27] MEDS: NORepinephrine 8mg/ 250ml NS 250 ML IV SCH (02:13)
[2019-07-27 03:02] LABS: BASOPHILS # (AUTO) 0.1 X10'3 (0-0.2); BASOPHILS % (AUTO) 0.4 % (0-1); EOSINOPHILS % (AUTO) 0 % (0-6); HEMATOCRIT 24.5 % (35.0-45.0); HEMOGLOBIN 7.8 g/dl (12.0-16.0); LYMPHOCYTES # (AUTO) 1.3 X10'3 (1.1-4.8); LYMPHOCYTES % (AUTO) 4.1 % (21-51); MEAN CORPUSCULAR HEMOGLOBIN 28.9 PG (27.0-31.0); MEAN CORPUSCULAR VOLUME 90.4 FL (78-98); MEAN PLATELET VOLUME 7.7 FL (7.4-10.4); MONOCYTES % (AUTO) 3.2 % (2-12); NEUTROPHILS # (AUTO) 28.6 X10'3 (1.8-7.7); NEUTROPHILS % (AUTO) 92.3 % (42-75); PLATELET COUNT 573 X10'3 (140-440)
[2019-07-27 03:19] LABS: ALANINE AMINOTRANSFERASE 32 U/L (12-78); ALBUMIN 1.1 G/DL (3.4-5.0); ALBUMIN/GLOBULIN RATIO 0.3 (1.1-1.5); ALKALINE PHOSPHATASE 569 IU/L (46-116); ANION GAP 7 (8-16); ASPARTATE AMINO TRANSFERASE 65 U/L (10-37); BILIRUBIN,TOTAL 0.3 MG/DL (0.1-1.0); BLOOD UREA NITROGEN 35 MG/DL (7-18); BUN/CREATININE RATIO 27.3 (6.6-38.0); CALCIUM 7.8 MG/DL (8.5-10.1); CHLORIDE 108 MMOL/L (99-107); CREATININE 1.28 MG/DL (0.40-0.90); GLUCOSE 161 MG/DL (70-104); MAGNESIUM 2.9 MG/DL (1.5-2.4); POTASSIUM 4.7 MMOL/L (3.5-5.1); SODIUM 138 MMOL/L (135-145); TOTAL CARBON DIOXIDE 23.2 MMOL/L (24-32); TOTAL PROTEIN 5.1 G/DL (6.4-8.2); eGFR 40 ML/MIN
[2019-07-27] MEDS: albuterol 1.25 MG/3 ML (1/2 strength) nebule NEB SCH ×6 (03:36→23:39)
[2019-07-27 03:54] LABS: TOTAL CELLS COUNTED 100
[2019-07-27 03:55] LABS: ANISOCYTOSIS FEW; LARGE PLATELETS FEW; PLATELET ESTIMATE INCREASED
[2019-07-27 03:56] LABS: HYPOCHROMASIA 1+; TOXIC GRANULATION 1+
--- NOTE | 2019-07-27 06:00 | NUR ---
Patient in room CICU 2013. I have received report from ANIBAL Unger and had the opportunity to ask questions and assume patient care.
[2019-07-27] MEDS: lactobacillus rhamnosus 10,000 MMU CELLS/CAPSULE PO SCH ×3 (08:00→20:31)
[2019-07-27] MEDS: docusate sodium 100mg/10ml UD cup PO SCH ×3 (08:00→20:31)
[2019-07-27] MEDS: CefTRIAXone 2gm/D5W 50ml 50 ML IV SCH (09:36)
[2019-07-27] MEDS: heparin, porcine 5000 units/ml vial SQ SCH ×2 (09:39→20:32)
[2019-07-27] MEDS: gabapentin 100mg capsule PO SCH (09:40)
[2019-07-27] MEDS ORDERED: dextrose 50%-water 50ml dispensing syringe IV ONE (09:58)
[2019-07-27] MEDS: dextrose 5%-normal saline 1,000 ML IV SCH ×2 (10:11→20:34)
[2019-07-27 15:01] LABS: ABG BASE EXCESS -5.4 mmol/L (-2.0-3.0); ABG HCO3 19.7 mmol/L (22.0-26.0); ABG OXYGEN SATURATION 96.3 % (95-98); ABG PCO2 (T) 35.6 mmHg (35.0-45.0); ABG PO2 (T) 89.1 mmHg (83-108); ALLEN'S TEST POSITIVE; FCOHb 0.3 % (0.5-1.5); FMetHb 0.1 % (0.3-1.12); FO2Hb 95.9 % (94-100); PATIENT TEMPERATURE 36.3; RESPIRATORY RATE 20 b/min; TIDAL VOLUME 599 mL; TOTAL HEMOGLOBIN 9.2 G/dl (12.0-16.0)
--- NOTE | 2019-07-27 15:35 | NUR ---
Reassessment: Pt extubated s/p thoracotomy, bronchoscopy, and decortication. Pt essentially NPO since 07/22 even though on clear liquids since does not have adequate swallow per RN. Two low Glu today receiving dex/NS currently. LBM 07/19 8 day constipation receiving colace and relistor though reglan stopped so never received; pt did refuse colace today per EMR. May require re-intubation per surgeon note; would benefit from NG to provide optimal nutrition needs post-op. Noted MAP [address] today; IF EN may benefit from trickle feed to ensure tolerance. Will continue to monitor for nutrition support needs if intubation and if PO diet will need BUSINESS MGR BSS prior to advancement. Recommend: 1. advance diet as medically indicated to vegetarian per pt preference 2. BUSINESS MGR BSS if no re-intubation given impaired swallow at this time 3. routine bowel care for bowel regularity; LBM 07/19 4. nutrition support if surgeon agreeable given inadequate intake and impaired swallow post-op 5. IF TF; Vital AF at 60ml/hr goal; consider trickle feeds if MAP remains less than 60 to ensure tolerance 6. weekly scaled wts Addendum: 07/27/19 at [address] Amended: Links added.
[2019-07-27] MEDS: lisinopril 5mg tablet PO SCH (20:00)
[2019-07-27] MEDS ORDERED: albumin (Human) 5% 250ml 250 ML IV ONE ×2 (20:15→20:40)
[2019-07-28] VITALS (24 sets, daily range): BP systolic 100–130; BP diastolic 37–67
[2019-07-28] MEDS: morphine/NS 5 mg/ml CADD 50 ML IV SCH ×12 (01:00→23:00)
[2019-07-28 03:16] LABS: ALANINE AMINOTRANSFERASE 18 U/L (12-78); ALBUMIN 1.4 G/DL (3.4-5.0); ALBUMIN/GLOBULIN RATIO 0.4 (1.1-1.5); ALKALINE PHOSPHATASE 342 IU/L (46-116); ANION GAP 12 (8-16); ASPARTATE AMINO TRANSFERASE 25 U/L (10-37); BILIRUBIN,TOTAL 0.2 MG/DL (0.1-1.0); BLOOD UREA NITROGEN 38 MG/DL (7-18); BUN/CREATININE RATIO 27.9 (6.6-38.0); CALCIUM 7.3 MG/DL (8.5-10.1); CHLORIDE 114 MMOL/L (99-107); CREATININE 1.36 MG/DL (0.40-0.90); GLUCOSE 133 MG/DL (70-104); MAGNESIUM 2.5 MG/DL (1.5-2.4); PHOSPHORUS 3.7 MG/DL (2.3-4.5); POTASSIUM 4.1 MMOL/L (3.5-5.1); SODIUM 146 MMOL/L (135-145); TOTAL PROTEIN 4.7 G/DL (6.4-8.2); eGFR 37 ML/MIN
[2019-07-28] MEDS: albuterol 1.25 MG/3 ML (1/2 strength) nebule NEB SCH ×6 (03:54→23:31)
[2019-07-28 04:32] LABS: BASOPHILS % (AUTO) 0.1 % (0-1); EOSINOPHILS % (AUTO) 0 % (0-6); LYMPHOCYTES # (AUTO) 2.4 X10'3 (1.1-4.8); LYMPHOCYTES % (AUTO) 4.9 % (21-51); MEAN CORPUSCULAR HEMOGLOBIN 27.8 PG (27.0-31.0); MEAN CORPUSCULAR HGB CONC 30.5 g/dL (33.0-36.5); MEAN CORPUSCULAR VOLUME 91.2 FL (78-98); MEAN PLATELET VOLUME 8.3 FL (7.4-10.4); MONOCYTES # (AUTO) 1.2 X10'3 (0-0.9); MONOCYTES % (AUTO) 2.4 % (2-12); NEUTROPHILS # (AUTO) 45.5 X10'3 (1.8-7.7); NEUTROPHILS % (AUTO) 92.6 % (42-75); PLATELET COUNT 539 X10'3 (140-440); RED BLOOD COUNT 2.32 X10'6 (4.20-5.60); RED CELL DISTRIBUTION WIDTH 16.2 % (11.5-14.5)
[2019-07-28 04:40] LABS: WHITE BLOOD COUNT 49.2 X10'3 (4.5-11.0)
[2019-07-28 04:41] LABS: HEMATOCRIT 21.2 % (35.0-45.0); HEMOGLOBIN 6.5 g/dl (12.0-16.0)
[2019-07-28] MEDS: dextrose 5%-normal saline 1,000 ML IV SCH (05:45)
[2019-07-28 06:08] LABS: TOTAL CELLS COUNTED 100
[2019-07-28 06:10] LABS: ANISOCYTOSIS 1+; PLATELET ESTIMATE INCREASED
[2019-07-28 07:56] LABS: ABG OXYGEN SATURATION 98.6 % (95-98); ABG PCO2 (T) 36.6 mmHg (35.0-45.0); ALLEN'S TEST POSITIVE; FCOHb 0.3 % (0.5-1.5); FLOW 10 L/min; FMetHb 0.3 % (0.3-1.12); TOTAL HEMOGLOBIN 8.3 G/dl (12.0-16.0)
[2019-07-28] MEDS: methylnaltrexone br 12mg/0.6ml inj***SubQ only SQ SCH (08:00)
[2019-07-28] MEDS: CefTRIAXone 2gm/D5W 50ml 50 ML IV SCH (09:01)
[2019-07-28] MEDS: gabapentin 100mg capsule PO SCH (09:05)
[2019-07-28] MEDS: lactobacillus rhamnosus 10,000 MMU CELLS/CAPSULE PO SCH ×2 (09:05→19:48)
[2019-07-28] MEDS: docusate sodium 100mg/10ml UD cup PO SCH ×2 (09:05→19:48)
[2019-07-28] MEDS ORDERED: epoetin 20,000 units/ml inj SQ ONE (09:20)
[2019-07-28] MEDS ORDERED: folic acid 1mg tablet PO ONE (09:25)
[2019-07-28] MEDS: multivitamins, therapeutics tablet PO SCH (10:48)
[2019-07-28 11:38] LABS: FERRITIN 420 NG/ML (8-252)
[2019-07-28 11:46] LABS: % IRON SATURATION 11 % (11-46); IRON 8 UG/DL (49-151); TOTAL IRON BINDING CAPACITY 75 UG/DL (259-388)
--- NOTE | 2019-07-28 18:19 | NUR ---
Problems reprioritized. Patient report given, questions answered & plan of care reviewed with ANIBAL COCHRAN.
[2019-07-28] MEDS: ondansetron/PF 4mg/2ml inj IV PRN (19:48)
[2019-07-28] MEDS: lisinopril 5mg tablet PO SCH (19:48)
--- NOTE | 2019-07-28 20:50 | NUR ---
PATIENT IS AROUSABLE BUT EXTREMELY GROGGY, DIFFICULT FORMING WORDS AND SENTENCES, UNABLE TO EVEN FEED HERSELF WHICH IS A CHANGE FROM MY PREVIOUS NIGHTS WITH HER. I AM UNCOMFORTABLE WITH HER TAKING PO BECAUSE SHE IS A HIGH RISK FOR ASPIRATION WITH HER MENTAL STATUS AT THIS TIME. NO COUGHING BUT DROOLS WATER FROM SIDE OF MOUTH WHEN TRYING TO SIP WATER. UNABLE TO USE A STRAW APPROPRIATELY. I AM RESTRICTING PO UNTIL SHE IS MORE ALERT. SHE DENIES PAIN, SHE IS NOT CONFUSED AT ALL. SHE IS ABLE TO COUGH ON COMMAND BUT VERY WEAK, SMALL AMOUNT PHLEGM THAT SHE SWALLOWS. SINCE SHE IS DENYING PAIN, I HAVE REDUCED THE CADD PUMP FROM A BASAL RATE OF 1 MG/HR TO 0 MG/HR. THE BOX FOLDING MACHINE OPERATOR DOSE REMAINS 1 MG WITH A LOCK OUT OF 10 MIN. I WILL MONITOR FOR PAIN. I WAS ABLE TO HAVE HER ATTEMPT THE i.s. SHE REACHED ABOUT 500 CC BUT SHE CAN NOT HOLD IT THERE FOR ANY PERIOD OF TIME/FALLS ASLEEP IN MIDDLE OF EXERCISE & DURING CONVERSATION SHE STARTS. I WILL ATTEMPT THIS EXERCISE AGAIN WHEN SHE IS MORE ALERT. VSS, RIGHT INCISIONAL SITE CDI, CT SECURE AND PATENT. SMALL AMOUNT SEROSANGUANOUS DRAINAGE. AROUND THIS TIME, I DID A BLOOD SUGAR FROM INDEX FINGER STICK - BLOOD VERY DARK AND FINGERS REMAIN HER BASELINE DUSKY - BG READ 44. REDRAW OFF OF CENTRAL LINE - 108. WILL PASS ALONG IN REPORT TO TAKE INTO CONSIDERATION WHEN GETTING FINGER STICKS IN FUTURE.
[2019-07-29] VITALS (24 sets, daily range): BP systolic 99–141; BP diastolic 31–73
[2019-07-29] MEDS: morphine/NS 5 mg/ml CADD 50 ML IV SCH ×12 (01:00→23:00)
[2019-07-29 03:06] LABS: EOSINOPHILS % (AUTO) 0 % (0-6); LYMPHOCYTES # (AUTO) 1.4 X10'3 (1.1-4.8); MONOCYTES # (AUTO) 1.5 X10'3 (0-0.9)
[2019-07-29 03:11] LABS: BASOPHILS % (AUTO) 0 % (0-1); HEMATOCRIT 22.5 % (35.0-45.0); LYMPHOCYTES % (AUTO) 2.8 % (21-51); MEAN CORPUSCULAR HEMOGLOBIN 27.5 PG (27.0-31.0); MEAN CORPUSCULAR HGB CONC 30.8 g/dL (33.0-36.5); MEAN CORPUSCULAR VOLUME 89.3 FL (78-98); NEUTROPHILS # (AUTO) 46.9 X10'3 (1.8-7.7); NEUTROPHILS % (AUTO) 94.2 % (42-75); PLATELET COUNT 603 X10'3 (140-440); RED BLOOD COUNT 2.52 X10'6 (4.20-5.60); RED CELL DISTRIBUTION WIDTH 16.6 % (11.5-14.5)
[2019-07-29] MEDS: albuterol 1.25 MG/3 ML (1/2 strength) nebule NEB SCH ×6 (03:13→22:50)
[2019-07-29 03:14] LABS: ALANINE AMINOTRANSFERASE 20 U/L (12-78); ALBUMIN 1.2 G/DL (3.4-5.0); ALBUMIN/GLOBULIN RATIO 0.3 (1.1-1.5); ALKALINE PHOSPHATASE 353 IU/L (46-116); ANION GAP 9 (8-16); ASPARTATE AMINO TRANSFERASE 25 U/L (10-37); BILIRUBIN,TOTAL 0.2 MG/DL (0.1-1.0); BLOOD UREA NITROGEN 52 MG/DL (7-18); BUN/CREATININE RATIO 31.7 (6.6-38.0); CALCIUM 7.9 MG/DL (8.5-10.1); CHLORIDE 112 MMOL/L (99-107); CREATININE 1.64 MG/DL (0.40-0.90); GLUCOSE 111 MG/DL (70-104); MAGNESIUM 2.7 MG/DL (1.5-2.4); POTASSIUM 4.9 MMOL/L (3.5-5.1); SODIUM 143 MMOL/L (135-145); TOTAL PROTEIN 4.9 G/DL (6.4-8.2); eGFR 30 ML/MIN
[2019-07-29 03:27] LABS: HEMOGLOBIN 6.9 g/dl (12.0-16.0); WHITE BLOOD COUNT 49.8 X10'3 (4.5-11.0)
[2019-07-29 03:35] LABS: TOTAL CELLS COUNTED 100
[2019-07-29 03:36] LABS: ANISOCYTOSIS 2+; HYPOCHROMASIA 2+; PLATELET ESTIMATE INCREASED
--- NOTE | 2019-07-29 06:30 | NUR ---
Patient in room CICU 2013. I have received report from Cornel BARNETT and had the opportunity to ask questions and assume patient care.
[2019-07-29] MEDS: multivitamins, therapeutics tablet PO SCH (08:00)
[2019-07-29] MEDS ORDERED: folic acid 1mg tablet PO SCH (08:00)
[2019-07-29] MEDS ORDERED: epoetin 20,000 units/ml inj SQ ONE (09:05)
[2019-07-29] MEDS: CefTRIAXone 2gm/D5W 50ml 50 ML IV SCH (09:50)
[2019-07-29] MEDS ORDERED: LIDOcaine 4% (40 mg/ml) topical solution 50ml TP ONE (10:00)
[2019-07-29] MEDS ORDERED: acetaminophen 325mg tablet CORPAK PRN (10:03)
[2019-07-29] MEDS ORDERED: mag hydrox/Alum hydrox/simeth 30ml oral suspension CORPAK PRN (10:05)
[2019-07-29] MEDS: iron sucrose complex injection 200 MG in normal saline 100ml IV soln 100 ML IV SCH (10:54)
--- NOTE | 2019-07-29 12:59 | NUR ---
TF consult. Patient has corpak with tip coiled in stomach per KUB report. Recommendations are below. Per nursing physical assessment patient is groggy and difficulty speaking, eating, and drinking indicating need for corpak tube feeding. Poor PO prior. Pt extubated s/p thoracotomy, bronchoscopy, and decortication. [facility] 07/19 10 day constipation receiving colace and relistor. Benefits from NG in view of able to provide optimal nutrition needs post-op. Patient had low blood glucose of 44 last night, possibly r/t no nutrition. BSS done today by PRODUCTION WELDER, PRODUCTION WELDER reports pt insists that she cannot swallow, unable to move bolus and recommends NPO. Recommend: 1. advance diet as medically indicated to vegetarian per pt preference as able when can pass swallow eval per PRODUCTION WELDER recommendations, currently PRODUCTION WELDER recommends NPO. 3. routine bowel care for bowel regularity; [facility] 07/19 4. recommend using Jevity 1.2 starting at 30 ml/hr and advance by 30 ml q 8 hours to goal rate of 65 ml/hr will provide total 1560 ml volume, 87 g protein, 1872 cals, and 1259 ml water. 5. daily wt, prealbumin q sunday/ 6. Additional water flush 100 ml q 4 hours Addendum: 07/29/19 at [address] Amended: Links added.
[2019-07-29] MEDS ORDERED: NORMAL SALINE IV ONE (15:35)
[2019-07-29] MEDS ORDERED: SINCALIDE IV ONE (15:35)
--- NOTE | 2019-07-29 16:30 | NUR ---
KUB reviewed by Juhi Garcia RN and Deepika Drake RN and confirmed placement of corpak as found.
--- NOTE | 2019-07-29 17:13 | NUR ---
Dr. Ivy aware of pt's increased ALOC, lab values, decreased urine output and inability to swallow this AM. Corpak successfully placed and tube feed to be started. Dr. Lyles ordered hida scan today (no response from [place]) and CT of chest, abdomen and pelvis to be done tmw AM after PO contrast tonight.
--- NOTE | 2019-07-29 17:42 | NUR ---
corpak measured at 64.
--- NOTE | 2019-07-29 18:29 | NUR ---
Problems reprioritized. Patient report given, questions answered & plan of care reviewed with Vane BARNETT.
[2019-07-29] MEDS: docusate sodium 100mg/10ml UD cup CORPAK SCH (20:23)
[2019-07-29] MEDS: lactobacillus rhamnosus 10,000 MMU CELLS/CAPSULE CORPAK SCH (20:23)
[2019-07-29] MEDS: lisinopril 5mg tablet CORPAK SCH (20:24)
[2019-07-29 21:00] LABS: ABG HCO3 19.3 mmol/L (22.0-26.0); ABG PCO2 (T) 31.5 mmHg (35.0-45.0); ABG PO2 (T) 77.3 mmHg (83-108); FCOHb 0.3 % (0.5-1.5); FLOW 4 L/min; FMetHb 0.2 % (0.3-1.12); FO2Hb 94.5 % (94-100); PATIENT TEMPERATURE 36.2; TOTAL HEMOGLOBIN 9.1 G/dl (12.0-16.0)
[2019-07-29] MEDS ORDERED: diatr meglu/diatrizoate 30ml oral sol.-(3 dose) bottle PO SCH (21:00)
--- NOTE | 2019-07-29 23:35 | NUR ---
Pt pulled out Corpak, charge nurse notified
[2019-07-30] VITALS (23 sets, daily range): BP systolic 118–170; BP diastolic 42–81
[2019-07-30] MEDS: morphine/NS 5 mg/ml CADD 50 ML IV SCH ×12 (01:00→23:00)
[2019-07-30 02:55] LABS: BASOPHILS % (AUTO) 0.1 % (0-1); EOSINOPHILS % (AUTO) 0 % (0-6); HEMOGLOBIN 7.4 g/dl (12.0-16.0); MONOCYTES # (AUTO) 1.5 X10'3 (0-0.9); MONOCYTES % (AUTO) 3.1 % (2-12); RED CELL DISTRIBUTION WIDTH 16.6 % (11.5-14.5)
[2019-07-30 03:00] LABS: BASOPHILS # (AUTO) 0.1 X10'3 (0-0.2); HEMATOCRIT 23.3 % (35.0-45.0); LYMPHOCYTES # (AUTO) 1.6 X10'3 (1.1-4.8); LYMPHOCYTES % (AUTO) 3.4 % (21-51); MEAN CORPUSCULAR HEMOGLOBIN 28.2 PG (27.0-31.0); MEAN CORPUSCULAR HGB CONC 31.8 g/dL (33.0-36.5); MEAN CORPUSCULAR VOLUME 88.9 FL (78-98); NEUTROPHILS # (AUTO) 43.6 X10'3 (1.8-7.7); NEUTROPHILS % (AUTO) 93.4 % (42-75); PLATELET COUNT 692 X10'3 (140-440); RED BLOOD COUNT 2.61 X10'6 (4.20-5.60)
[2019-07-30 03:10] LABS: ALANINE AMINOTRANSFERASE 20 U/L (12-78); ALBUMIN 1.3 G/DL (3.4-5.0); ALBUMIN/GLOBULIN RATIO 0.3 (1.1-1.5); ALKALINE PHOSPHATASE 380 IU/L (46-116); ANION GAP 11 (8-16); ASPARTATE AMINO TRANSFERASE 24 U/L (10-37); BILIRUBIN,TOTAL 0.2 MG/DL (0.1-1.0); BLOOD UREA NITROGEN 61 MG/DL (7-18); BUN/CREATININE RATIO 35.7 (6.6-38.0); CALCIUM 8.2 MG/DL (8.5-10.1); CHLORIDE 114 MMOL/L (99-107); CREATININE 1.71 MG/DL (0.40-0.90); GLUCOSE 110 MG/DL (70-104); MAGNESIUM 2.6 MG/DL (1.5-2.4); PHOSPHORUS 4.5 MG/DL (2.3-4.5); POTASSIUM 4.7 MMOL/L (3.5-5.1); SODIUM 148 MMOL/L (135-145); TOTAL CARBON DIOXIDE 23.1 MMOL/L (24-32); TOTAL PROTEIN 5.2 G/DL (6.4-8.2); eGFR 29 ML/MIN
[2019-07-30] MEDS: albuterol 1.25 MG/3 ML (1/2 strength) nebule NEB SCH ×6 (03:31→22:56)
[2019-07-30 03:40] LABS: PLATELET ESTIMATE INCREASED; TOTAL CELLS COUNTED 100
[2019-07-30 03:41] LABS: ANISOCYTOSIS 2+; HYPOCHROMASIA 2+
[2019-07-30 03:43] LABS: WHITE BLOOD COUNT 46.7 X10'3 (4.5-11.0)
--- NOTE | 2019-07-30 06:17 | NUR ---
Patient in room CICU 2013. I have received report from Vane BARNETT and had the opportunity to ask questions and assume patient care.
[2019-07-30] MEDS: folic acid 1mg tablet CORPAK SCH (08:00)
[2019-07-30] MEDS: lactobacillus rhamnosus 10,000 MMU CELLS/CAPSULE CORPAK SCH ×2 (08:00→19:40)
[2019-07-30] MEDS: docusate sodium 100mg/10ml UD cup CORPAK SCH ×2 (08:00→19:40)
[2019-07-30] MEDS: multivitamins, therapeutics tablet PO SCH (08:00)
[2019-07-30] MEDS: gabapentin 100mg capsule CORPAK SCH (08:00)
[2019-07-30] MEDS: methylnaltrexone br 12mg/0.6ml inj***SubQ only SQ SCH (08:38)
[2019-07-30] MEDS: iron sucrose complex injection 200 MG in normal saline 100ml IV soln 100 ML IV SCH (08:38)
[2019-07-30] MEDS: CefTRIAXone 2gm/D5W 50ml 50 ML IV SCH (08:38)
--- NOTE | 2019-07-30 10:13 | NUR ---
pt off the floor to [facility].
[2019-07-30] MEDS ORDERED: diatr meglu/diatrizoate 30ml oral sol.-(3 dose) bottle CORPAK SCH (11:01)
--- NOTE | 2019-07-30 14:04 | NUR ---
Reassessment: Last KUB report states recommendation for advancing corpak further as tip seen in region of stomach antrum toward pylorus. ID MD note states pt pulled out NG during HIDA and is now pending replacement. Pending new KUB report. Tube feeding has not been started. Per nursing physical assessment patient is groggy and difficulty speaking, eating, and drinking indicating need for corpak tube feeding. Poor PO prior. Pt extubated s/p thoracotomy, bronchoscopy, and decortication. L[facility] 07/19 10 day constipation receiving colace and relistor. Benefits from NG in view of able to provide optimal nutrition needs post-op. Patient had low blood glucose of 44 last night, possibly r/t no nutrition. BSS done today by BOAT DECKHAND, BOAT DECKHAND reports pt insists that she cannot swallow, unable to move bolus and recommends NPO. Recommend: 1. advance diet as medically indicated to vegetarian per pt preference as able when can pass swallow eval per BOAT DECKHAND recommendations, currently BOAT DECKHAND recommends NPO. 3. routine bowel care for bowel regularity; [facility] 07/19 4. recommend using Jevity 1.2 starting at 30 ml/hr and advance by 30 ml q 8 hours to goal rate of 65 ml/hr will provide total 1560 ml volume, 87 g protein, 1872 cals, and 1259 ml water. 5. daily wt, prealbumin q sunday/ 6. Additional water flush 100 ml q 4 hours Addendum: 07/30/19 at [address] Amended: Links added.
--- NOTE | 2019-07-30 16:40 | NUR ---
[facility] LINE INFORMATION: REF: [id number] LOT: [id number] EXP: 05/19/2020
[2019-07-30] MEDS: diatr meglu/diatrizoate 30ml oral sol.-(3 dose) bottle CORPAK SCH ×2 (17:24→19:41)
--- NOTE | 2019-07-30 18:15 | NUR ---
Problems reprioritized. Patient report given, questions answered & plan of care reviewed with Vanita BARNETT.
[2019-07-30] MEDS: lisinopril 5mg tablet CORPAK SCH (19:40)
[2019-07-30] MEDS: magnesium hydroxide 30ml (MOM) UD suspension CORPAK PRN (22:06)
--- NOTE | 2019-07-30 22:45 | NUR ---
Patient in room CICU 2013. I have received report from yinka martinez and had the opportunity to ask questions and assume patient care.
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
[2019-07-31] VITALS (22 sets, daily range): BP systolic 117–167; BP diastolic 50–82
[2019-07-31] MEDS: morphine/NS 5 mg/ml CADD 50 ML IV SCH ×12 (01:00→23:00)
[2019-07-31] MEDS: albuterol 1.25 MG/3 ML (1/2 strength) nebule NEB SCH ×6 (03:00→23:31)
[2019-07-31 03:05] LABS: BASOPHILS % (AUTO) 0.1 % (0-1); EOSINOPHILS % (AUTO) 0 % (0-6); HEMOGLOBIN 7.4 g/dl (12.0-16.0); MEAN CORPUSCULAR HGB CONC 30.9 g/dL (33.0-36.5)
[2019-07-31 03:09] LABS: BASOPHILS # (AUTO) 0.1 X10'3 (0-0.2); LYMPHOCYTES % (AUTO) 5.3 % (21-51); MEAN CORPUSCULAR HEMOGLOBIN 27.5 PG (27.0-31.0); MEAN CORPUSCULAR VOLUME 88.9 FL (78-98); MONOCYTES # (AUTO) 1.7 X10'3 (0-0.9); MONOCYTES % (AUTO) 4.7 % (2-12); NEUTROPHILS # (AUTO) 33.1 X10'3 (1.8-7.7); NEUTROPHILS % (AUTO) 89.9 % (42-75); PLATELET COUNT 668 X10'3 (140-440); RED CELL DISTRIBUTION WIDTH 16.4 % (11.5-14.5)
[2019-07-31 03:14] LABS: WHITE BLOOD COUNT 36.8 X10'3 (4.5-11.0)
[2019-07-31 03:29] LABS: ALANINE AMINOTRANSFERASE 27 U/L (12-78); ALBUMIN 1.3 G/DL (3.4-5.0); ALBUMIN/GLOBULIN RATIO 0.3 (1.1-1.5); ALKALINE PHOSPHATASE 413 IU/L (46-116); ANION GAP 10 (8-16); ASPARTATE AMINO TRANSFERASE 25 U/L (10-37); BILIRUBIN,TOTAL 0.2 MG/DL (0.1-1.0); BLOOD UREA NITROGEN 67 MG/DL (7-18); BUN/CREATININE RATIO 42.7 (6.6-38.0); CALCIUM 8.1 MG/DL (8.5-10.1); CHLORIDE 116 MMOL/L (99-107); CREATININE 1.57 MG/DL (0.40-0.90); GLUCOSE 104 MG/DL (70-104); POTASSIUM 4.1 MMOL/L (3.5-5.1); PREALBUMIN 7.4 MG/DL (19-36); SODIUM 150 MMOL/L (135-145); TOTAL CARBON DIOXIDE 24.1 MMOL/L (24-32); TOTAL PROTEIN 5.2 G/DL (6.4-8.2); eGFR 32 ML/MIN
[2019-07-31 03:59] LABS: ANISOCYTOSIS 2+; HYPOCHROMASIA 2+; PLATELET ESTIMATE INCREASED; TOTAL CELLS COUNTED 100
[2019-07-31] MEDS ORDERED: desmopressin 0.1mg/ml nasal spray 5ml btl NS ONE (07:00)
[2019-07-31] MEDS: docusate sodium 100mg/10ml UD cup CORPAK SCH ×2 (10:32→19:57)
[2019-07-31] MEDS: magnesium hydroxide 30ml (MOM) UD suspension CORPAK PRN (10:32)
[2019-07-31] MEDS: lactobacillus rhamnosus 10,000 MMU CELLS/CAPSULE CORPAK SCH ×2 (10:33→19:59)
[2019-07-31] MEDS: folic acid 1mg tablet CORPAK SCH (10:34)
[2019-07-31] MEDS: CefTRIAXone 2gm/D5W 50ml 50 ML IV SCH (10:34)
[2019-07-31] MEDS: gabapentin 100mg capsule CORPAK SCH (10:34)
[2019-07-31] MEDS: multivitamins, therapeutics tablet PO SCH (10:34)
[2019-07-31] MEDS: iron sucrose complex injection 200 MG in normal saline 100ml IV soln 100 ML IV SCH (10:35)
[2019-07-31] MEDS ORDERED: epoetin 20,000 units/ml inj SQ ONE (11:10)
--- NOTE | 2019-07-31 12:13 | NUR ---
F/u: Pt new corpak in proximal duodenum w/ constipation noted per CT note. Pt TF at 30ml/hr advancing to goal GRV WNL. Still no BM 11 days receiving routine colace, probiotic, relistor, and PRN MoM today per RN. RN reports pt significant hx chronic constipation using multiple medications at home and typically requires digital disimpaction even at home. PARVIZ d/w RN regarding additional bowel care per MD approval; pt attempting to have BM currently. Pt also receiving iron which is known to be constipating as well. Na 150 though to likely begin correcting since nutrition and water flushes started. Will monitor for EN tolerance. Addendum: 07/31/19 at [address] Amended: Links added.
--- NOTE | 2019-07-31 18:30 | NUR ---
Patient in room CICU 2013. I have received report from ANIBAL Unger and had the opportunity to ask questions and assume patient care.
[2019-07-31] MEDS: lisinopril 5mg tablet CORPAK SCH (19:57)
[2019-07-31] MEDS: lactulose 20gm/30ml cup PO SCH (19:57)
[2019-07-31] MEDS ORDERED: magnesium hydroxide 30ml (MOM) UD suspension PO ONE (20:00)
[2019-07-31] MEDS ORDERED: dextrose 50%-water 50ml dispensing syringe IV PRN ×2 (20:20)
[2019-07-31] MEDS ORDERED: dextrose ORAL solution 15 GM/59 ML bottle PO PRN ×2 (20:20)
[2019-07-31] MEDS ORDERED: glucagon, human recombinant 1mg kit SUBCUT PRN (20:20)
[2019-07-31] MEDS ORDERED: MESSAGE TO PHARMACY PO ONE (20:20)
[2019-07-31] MEDS ORDERED: insulin Lispro (HumaLOG) vial - multi-dose SQ SCH (20:20)
[2019-07-31] MEDS: insulin regular, human U-100 3ml vial - multi-dose SQ SCH (22:04)
[2019-07-31] MEDS: insulin glargine (Lantus) pen - multi-dose SQ SCH (22:05)
[2019-07-31 23:22] LABS: HEMOGLOBIN A1C 6.6 % (4.5-6.2)
[2019-08-01] VITALS (21 sets, daily range): BP systolic 92–136; BP diastolic 41–64
[2019-08-01] MEDS: morphine/NS 5 mg/ml CADD 50 ML IV SCH ×12 (01:00→23:00)
[2019-08-01] MEDS: lactulose 20gm/30ml cup PO SCH ×4 (02:17→19:29)
[2019-08-01] MEDS: insulin regular, human U-100 3ml vial - multi-dose SQ SCH ×3 (02:19→20:07)
[2019-08-01 02:31] LABS: BASOPHILS # (AUTO) 0.1 X10'3 (0-0.2); BASOPHILS % (AUTO) 0.2 % (0-1); EOSINOPHILS % (AUTO) 0 % (0-6); HEMATOCRIT 26.2 % (35.0-45.0); LYMPHOCYTES # (AUTO) 2.3 X10'3 (1.1-4.8); LYMPHOCYTES % (AUTO) 5.5 % (21-51); MEAN CORPUSCULAR HEMOGLOBIN 27.5 PG (27.0-31.0); MEAN CORPUSCULAR HGB CONC 30.5 g/dL (33.0-36.5); MEAN CORPUSCULAR VOLUME 90.1 FL (78-98); MEAN PLATELET VOLUME 7.9 FL (7.4-10.4); MONOCYTES # (AUTO) 2.3 X10'3 (0-0.9); MONOCYTES % (AUTO) 5.5 % (2-12); NEUTROPHILS # (AUTO) 37.4 X10'3 (1.8-7.7); NEUTROPHILS % (AUTO) 88.8 % (42-75); PLATELET COUNT 634 X10'3 (140-440); RED BLOOD COUNT 2.91 X10'6 (4.20-5.60); RED CELL DISTRIBUTION WIDTH 16.6 % (11.5-14.5)
[2019-08-01 02:35] LABS: WHITE BLOOD COUNT 42.1 X10'3 (4.5-11.0)
[2019-08-01 02:42] LABS: ALANINE AMINOTRANSFERASE 15 U/L (12-78); ALBUMIN 1.3 G/DL (3.4-5.0); ALBUMIN/GLOBULIN RATIO 0.4 (1.1-1.5); ALKALINE PHOSPHATASE 350 IU/L (46-116); ANION GAP 7 (8-16); ASPARTATE AMINO TRANSFERASE 19 U/L (10-37); BILIRUBIN,TOTAL 0.2 MG/DL (0.1-1.0); BLOOD UREA NITROGEN 68 MG/DL (7-18); BUN/CREATININE RATIO 46.3 (6.6-38.0); CALCIUM 8.1 MG/DL (8.5-10.1); CHLORIDE 119 MMOL/L (99-107); CREATININE 1.47 MG/DL (0.40-0.90); GLUCOSE 165 MG/DL (70-104); POTASSIUM 3.8 MMOL/L (3.5-5.1); SODIUM 152 MMOL/L (135-145); TOTAL CARBON DIOXIDE 26.3 MMOL/L (24-32); TOTAL PROTEIN 4.9 G/DL (6.4-8.2); eGFR 34 ML/MIN
[2019-08-01 02:57] LABS: NUCLEATED RED BLOOD CELLS 2 /100WBC (0-0); TOTAL CELLS COUNTED 100
[2019-08-01 02:58] LABS: ANISOCYTOSIS 2+; HYPOCHROMASIA 2+; PLATELET ESTIMATE INCREASED
[2019-08-01] MEDS: albuterol 1.25 MG/3 ML (1/2 strength) nebule NEB SCH ×3 (03:32→11:33)
--- NOTE | 2019-08-01 06:36 | NUR ---
Problems reprioritized. Patient report given, questions answered & plan of care reviewed with ANIBAL Harkins.
[2019-08-01] MEDS: docusate sodium 100mg/10ml UD cup CORPAK SCH ×2 (08:00→19:28)
[2019-08-01] MEDS: gabapentin 100mg capsule CORPAK SCH (08:00)
[2019-08-01] MEDS: methylnaltrexone br 12mg/0.6ml inj***SubQ only SQ SCH (08:00)
[2019-08-01] MEDS: lactobacillus rhamnosus 10,000 MMU CELLS/CAPSULE CORPAK SCH ×2 (09:51→19:56)
[2019-08-01] MEDS: multivitamins, therapeutics tablet PO SCH (09:51)
[2019-08-01] MEDS: folic acid 1mg tablet CORPAK SCH (09:52)
[2019-08-01] MEDS: iron sucrose complex injection 200 MG in normal saline 100ml IV soln 100 ML IV SCH (09:52)
[2019-08-01] MEDS: CefTRIAXone 2gm/D5W 50ml 50 ML IV SCH (09:53)
[2019-08-01] MEDS ORDERED: LORazepam 2 mg/ml vial IV ONE (10:50)
[2019-08-01] MEDS ORDERED: desmopressin 0.1mg/ml nasal spray 5ml btl NS ONE (11:20)
[2019-08-01] MEDS: metroNIDAZOLE 500mg tablet PO SCH ×2 (14:54→19:56)
[2019-08-01] MEDS: albuterol 2.5 MG/3 ML nebule NEB SCH ×3 (15:25→23:57)
--- NOTE | 2019-08-01 18:12 | NUR ---
REPORT GIVEN TO NIGHT RN
--- NOTE | 2019-08-01 18:31 | NUR ---
Patient in room CICU 2013. I have received report from ANIBAL Harkins and had the opportunity to ask questions and assume patient care.
[2019-08-01] MEDS: lisinopril 5mg tablet CORPAK SCH (19:56)
[2019-08-01] MEDS: insulin glargine (Lantus) pen - multi-dose SQ SCH (20:59)
[2019-08-02] VITALS (23 sets, daily range): BP systolic 83–131; BP diastolic 32–56
--- NOTE | 2019-08-02 00:08 | NUR ---
Unable to get reliable Spo2 reading on pt at this time. Have tried with hand held pulse ox and ICU monitor with sensor on the ear.
[2019-08-02] MEDS: morphine/NS 5 mg/ml CADD 50 ML IV SCH ×12 (01:00→23:00)
[2019-08-02] MEDS: lactulose 20gm/30ml cup PO SCH ×4 (01:07→18:42)
[2019-08-02 02:21] LABS: BASOPHILS % (AUTO) 0.1 % (0-1); HEMOGLOBIN 8.2 g/dl (12.0-16.0); MEAN CORPUSCULAR HGB CONC 30.5 g/dL (33.0-36.5); RED CELL DISTRIBUTION WIDTH 16.7 % (11.5-14.5)
[2019-08-02 02:22] LABS: EOSINOPHILS % (AUTO) 0.1 % (0-6); HEMATOCRIT 26.8 % (35.0-45.0); LYMPHOCYTES # (AUTO) 1.5 X10'3 (1.1-4.8); LYMPHOCYTES % (AUTO) 3.8 % (21-51); MEAN CORPUSCULAR VOLUME 91.7 FL (78-98); MEAN PLATELET VOLUME 8.2 FL (7.4-10.4); MONOCYTES # (AUTO) 1.2 X10'3 (0-0.9); MONOCYTES % (AUTO) 3.3 % (2-12); NEUTROPHILS # (AUTO) 35.5 X10'3 (1.8-7.7); NEUTROPHILS % (AUTO) 92.7 % (42-75); PLATELET COUNT 475 X10'3 (140-440); RED BLOOD COUNT 2.92 X10'6 (4.20-5.60)
[2019-08-02 02:25] LABS: WHITE BLOOD COUNT 38.3 X10'3 (4.5-11.0)
[2019-08-02 02:31] LABS: ALANINE AMINOTRANSFERASE 24 U/L (12-78); ALBUMIN 1.2 G/DL (3.4-5.0); ALBUMIN/GLOBULIN RATIO 0.3 (1.1-1.5); ALKALINE PHOSPHATASE 345 IU/L (46-116); ANION GAP 7 (8-16); ASPARTATE AMINO TRANSFERASE 26 U/L (10-37); BILIRUBIN,TOTAL 0.2 MG/DL (0.1-1.0); BLOOD UREA NITROGEN 76 MG/DL (7-18); BUN/CREATININE RATIO 49.4 (6.6-38.0); CHLORIDE 121 MMOL/L (99-107); CREATININE 1.54 MG/DL (0.40-0.90); GLUCOSE 194 MG/DL (70-104); SODIUM 153 MMOL/L (135-145); TOTAL CARBON DIOXIDE 25.3 MMOL/L (24-32); TOTAL PROTEIN 4.7 G/DL (6.4-8.2); eGFR 32 ML/MIN
[2019-08-02 03:31] LABS: ANISOCYTOSIS 1+; NUCLEATED RED BLOOD CELLS 10 /100WBC (0-0); PLATELET ESTIMATE INCREASED; TOTAL CELLS COUNTED 100
[2019-08-02 03:32] LABS: HYPOCHROMASIA 1+; LARGE PLATELETS FEW; POLYCHROMASIA 1+
[2019-08-02] MEDS: albuterol 2.5 MG/3 ML nebule NEB SCH ×5 (03:38→19:43)
--- NOTE | 2019-08-02 06:21 | NUR ---
Problems reprioritized. Patient report given, questions answered & plan of care reviewed with ANIBAL Unger.
[2019-08-02] MEDS: docusate sodium 100mg/10ml UD cup CORPAK SCH ×2 (08:00→18:42)
[2019-08-02] MEDS: insulin regular, human U-100 3ml vial - multi-dose SQ SCH ×3 (08:51→19:46)
[2019-08-02] MEDS: iron sucrose complex injection 200 MG in normal saline 100ml IV soln 100 ML IV SCH (08:51)
[2019-08-02] MEDS: CefTRIAXone 2gm/D5W 50ml 50 ML IV SCH (08:51)
[2019-08-02] MEDS: metroNIDAZOLE 500mg tablet PO SCH ×2 (08:52→19:47)
[2019-08-02] MEDS: lactobacillus rhamnosus 10,000 MMU CELLS/CAPSULE CORPAK SCH ×2 (08:52→19:48)
[2019-08-02] MEDS: gabapentin 100mg capsule CORPAK SCH (08:52)
[2019-08-02] MEDS: folic acid 1mg tablet CORPAK SCH (08:52)
[2019-08-02] MEDS: multivitamins, therapeutics tablet PO SCH (08:52)
[2019-08-02] MEDS ORDERED: epoetin 20,000 units/ml inj SQ ONE (11:05)
[2019-08-02 13:40] LABS: ABG BASE EXCESS -2.2 mmol/L (-2.0-3.0); ABG OXYGEN SATURATION 95.1 % (95-98); ABG PCO2 (T) 33.3 mmHg (35.0-45.0); ABG PO2 (T) 69.5 mmHg (83-108); ALLEN'S TEST POSITIVE; FCOHb 0.3 % (0.5-1.5); FLOW 4 L/min; FMetHb 0.1 % (0.3-1.12); FO2Hb 94.7 % (94-100); TOTAL HEMOGLOBIN 8.2 G/dl (12.0-16.0)
--- NOTE | 2019-08-02 14:00 | NUR ---
Pt mmentation has changed the past day. Unable to respond to stimuli. Unable to participate in care or PT. Just stares off and cries out as if afraid. ABG WNL, narcan given with no change. Possible ICU delirium.
--- NOTE | 2019-08-02 14:35 | NUR ---
reassessment: patient finally having bowel movements, one moderate 6/12 and two moderate BMs this morning. Has rectal tube. Pt has corpak in proximal duodenum. At goal rate with TF. receiving routine colace, probiotic, relistor, relistor (now being held d/t liquid stool). RN reports pt significant hx chronic constipation using multiple medications at home and typically requires digital disimpaction even at home. Sodium trending upwards now at 153, she is receiving water flush 100 ml q 4 hours. Has free water deficit of 2.3 Liters. Recommend to increase to 200 ml q 4 hours to bring down sodium slowly, d/w with PA and bedside nurse. Recommend: 1. advance diet as medically indicated to vegetarian per pt preference as able when can pass swallow eval per SIGNALS INTELLIGENCE ANALYST recommendations, currently SIGNALS INTELLIGENCE ANALYST recommends NPO. 3. routine bowel care for bowel regularity 4. recommend using Jevity 1.2 goal rate of 65 ml/hr will provide total 1560 ml volume, 87 g protein, 1872 cals, and 1259 ml water. 5. daily wt, prealbumin q sunday/ 6. Additional water flush 200 ml q 4 hours, sodium currently 153 Addendum: 08/02/19 at [address] Amended: Links added.
--- NOTE | 2019-08-02 18:34 | NUR ---
Patient in room CICU 2013. I have received report from ANIBAL Unger and had the opportunity to ask questions and assume patient care.
[2019-08-02] MEDS: lisinopril 5mg tablet CORPAK SCH (19:47)
[2019-08-02] MEDS: insulin glargine (Lantus) pen - multi-dose SQ SCH (20:56)
[2019-08-02] MEDS ORDERED: albumin (human) 25% 100 ML IV solution IV ONE (23:00)
[2019-08-02] MEDS ORDERED: albumin (human) 25% 100ml IV 100 ML IV ONE (23:02)
--- NOTE | 2019-08-02 23:29 | NUR ---
Patient with low blood pressure, map in the 40s. February Franck,OFFSET PRINTING OPERATOR notified of patient condition, informed that patient received lisinopril at 1999 when BP was 130s/120s systolic, pt with low urine output, blood sugar normal, declining mentation from previous night. OFFSET PRINTING OPERATOR ordered albumin 25% to be given now, patient to receive norepi if blood pressure does not improve. OFFSET PRINTING OPERATOR states that if systolic blood pressure is in 90's to continue monitoring and then start norepi if unable to maintain an adequate blood pressure.
[2019-08-03] VITALS (23 sets, daily range): BP systolic 89–128; BP diastolic 35–59
[2019-08-03] MEDS: albuterol 2.5 MG/3 ML nebule NEB SCH ×7 (00:06→23:41)
[2019-08-03] MEDS ORDERED: sodium chloride inj. 154 MEQ in Dextrose 10%-water IV solution 961.5 ML IV SCH (00:15)
[2019-08-03] MEDS ORDERED: Dextrose 10%-water IV solution 1,000 ML IV SCH ×2 (00:20)
--- NOTE | 2019-08-03 00:20 | NUR ---
Patient found to have pulled out corpak. February BEBA Juárez notified. Orders to start D10 at 50ml/hr received as patient received lantus earlier this evening, blood sugar 88. Will monitor blood sugar closely. Corpak attempted to be replaced, resistance met, will attempt advancing after some time and then obtain KUB.
[2019-08-03] MEDS: morphine/NS 5 mg/ml CADD 50 ML IV SCH ×7 (01:00→13:00)
[2019-08-03] MEDS: NORepinephrine 8mg/ 250ml NS 250 ML IV SCH (01:02)
--- NOTE | 2019-08-03 01:15 | NUR ---
while on lunch break, resource nurse ANIBAL Richardson started norepi due to low blood pressures, will continue to monitor and titrate as tolerated.
--- NOTE | 2019-08-03 02:53 | NUR ---
Was able to advance corpak to 65 as it was previously, kub obtained, further advancement needed, was able to advance to 75 another kub will be obtained later this morning to confirm placement.
[2019-08-03 02:54] LABS: BASOPHILS # (AUTO) 0.1 X10'3 (0-0.2); EOSINOPHILS % (AUTO) 0.1 % (0-6); MEAN CORPUSCULAR HEMOGLOBIN 28.3 PG (27.0-31.0); MEAN PLATELET VOLUME 8.5 FL (7.4-10.4); MONOCYTES # (AUTO) 1.7 X10'3 (0-0.9); MONOCYTES % (AUTO) 3.8 % (2-12); RED BLOOD COUNT 2.39 X10'6 (4.20-5.60)
[2019-08-03 02:59] LABS: BASOPHILS % (AUTO) 0.1 % (0-1); HEMATOCRIT 22.3 % (35.0-45.0); LYMPHOCYTES % (AUTO) 6.8 % (21-51); MEAN CORPUSCULAR HGB CONC 30.3 g/dL (33.0-36.5); MEAN CORPUSCULAR VOLUME 93.6 FL (78-98); NEUTROPHILS # (AUTO) 39.3 X10'3 (1.8-7.7); NEUTROPHILS % (AUTO) 89.2 % (42-75); PLATELET COUNT 386 X10'3 (140-440); RED CELL DISTRIBUTION WIDTH 16.8 % (11.5-14.5)
[2019-08-03 03:04] LABS: HEMOGLOBIN 6.8 g/dl (12.0-16.0); WHITE BLOOD COUNT 44.1 X10'3 (4.5-11.0)
[2019-08-03 03:05] LABS: ALANINE AMINOTRANSFERASE 19 U/L (12-78); ALBUMIN 1.6 G/DL (3.4-5.0); ALBUMIN/GLOBULIN RATIO 0.5 (1.1-1.5); ALKALINE PHOSPHATASE 220 IU/L (46-116); ANION GAP 9 (8-16); ASPARTATE AMINO TRANSFERASE 19 U/L (10-37); BILIRUBIN,TOTAL 0.2 MG/DL (0.1-1.0); BLOOD UREA NITROGEN 81 MG/DL (7-18); BUN/CREATININE RATIO 44.8 (6.6-38.0); CALCIUM 7.9 MG/DL (8.5-10.1); CHLORIDE 119 MMOL/L (99-107); CREATININE 1.81 MG/DL (0.40-0.90); GLUCOSE 110 MG/DL (70-104); POTASSIUM 4.2 MMOL/L (3.5-5.1); SODIUM 154 MMOL/L (135-145); TOTAL CARBON DIOXIDE 25.9 MMOL/L (24-32); TOTAL PROTEIN 4.7 G/DL (6.4-8.2); eGFR 27 ML/MIN
[2019-08-03 04:47] LABS: ANISOCYTOSIS 1+; NUCLEATED RED BLOOD CELLS 4 /100WBC (0-0); PLATELET ESTIMATE NORMAL; TOTAL CELLS COUNTED 100
[2019-08-03 04:48] LABS: HYPOCHROMASIA 1+; LARGE PLATELETS FEW; POLYCHROMASIA FEW
--- NOTE | 2019-08-03 05:00 | NUR ---
Lowered D10 to 25ml/hr from 50ml/hr after speaking to February Franck, TRAILER DRIVER about patient's lungs starting to sound more coarse. Awaiting kub to check placement of corpak so that tube feed can be started and D10 can be discontinued. blood sugar was 117 at time that D10 was decreased, will continue to monitor.
--- NOTE | 2019-08-03 06:54 | NUR ---
Problems reprioritized. Patient report given, questions answered & plan of care reviewed with ANIBAL Greenwood.
--- NOTE | 2019-08-03 07:06 | NUR ---
Patient in room CICU 2013. I have received report from FRANCESCO and had the opportunity to ask questions and assume patient care. PT NOT DOING WELL, OBTUNDED, PER PREVIOUS RN THIS IS HOW PT HAS BEEN. PT MOANS AT TIMES BUT UNABLE TO ANSWER ANY QUESTIONS OR FOLLOW COMMANDS AT THIS TIME.
[2019-08-03] MEDS ORDERED: epoetin 20,000 units/ml inj SQ ONE (07:15)
[2019-08-03] MEDS: methylnaltrexone br 12mg/0.6ml inj***SubQ only SQ SCH (08:00)
[2019-08-03] MEDS ORDERED: DESMOPRESSIN IV ONE (08:00)
[2019-08-03] MEDS: lactulose 20gm/30ml cup PO SCH ×3 (08:00→20:00)
[2019-08-03] MEDS: docusate sodium 100mg/10ml UD cup CORPAK SCH ×2 (08:00→20:00)
[2019-08-03] MEDS ORDERED: NORMAL SALINE IV ONE (08:00)
[2019-08-03] MEDS: CefTRIAXone 2gm/D5W 50ml 50 ML IV SCH (08:15)
--- NOTE | 2019-08-03 08:30 | NUR ---
per dr. church core bruno in place may use
[2019-08-03] MEDS ORDERED: furosemide 40mg/4ml inj IV ONE (08:45)
[2019-08-03] MEDS: lactobacillus rhamnosus 10,000 MMU CELLS/CAPSULE CORPAK SCH ×2 (09:05→20:02)
[2019-08-03] MEDS: multivitamins, therapeutics tablet PO SCH (09:05)
[2019-08-03] MEDS: gabapentin 100mg capsule CORPAK SCH (09:05)
[2019-08-03] MEDS: folic acid 1mg tablet CORPAK SCH (09:05)
[2019-08-03] MEDS: iron sucrose complex injection 200 MG in normal saline 100ml IV soln 100 ML IV SCH (10:46)
--- NOTE | 2019-08-03 11:03 | NUR ---
PT DESATING TO 86% 4 L nc O2 INCREASED TO 6 L NC BILL RT TO SEE PT. HE NT SUCTIONED PT. PT PUT BACK ON 4L NC O2 94%
[2019-08-03] MEDS: metroNIDAZOLE-Flagyl 500mg/NS 100 ML IV SCH ×2 (11:54→17:48)
--- NOTE | 2019-08-03 13:35 | NUR ---
PTS DAUGHTER AT BEDSIDE, DAUGHTER SAID SHE WOULD LIKE PT TO BE A DNR, DAUGHTER NIKHIL TALKED TO DR. PARK ABOUT THIS ON THE PHONE EARLIER TODAY PER NIKHIL. I CALLED DR PARK AND HE AGREES TO CHANGE CODE STATUS TO DNR. PER DR. PARK D/C CADD START DILAUDID 0.5MG Q2HRS PRN. CALLED DR. VERAS TO LET HIM KNOW ABOUT THE CODE STATUS CHANGE, NO ANSWER, MAILBOX FULL.
[2019-08-03] MEDS: HYDROmorphone inj. 0.5 MG/0.5 ML DISP.SYRIN IV PRN ×4 (14:13→22:24)
--- NOTE | 2019-08-03 16:17 | NUR ---
SPOKE WITH DIANN PHARMACIST ASKED HOW MUCH TIME NEEDS TO BE IN BETWEEN [place] DOESES SINCE THE LAST DOSE WAS GIVEN LATE, HE SAID TO GIVE IT 2HRS LATE AT 6PM. I ASKED HIM TO RETMIME THE MED HE SAID, NO JUST ADMIN IT 2HRS LATE SO THAT THERE IS 6HRS INBETWEEN DOSES.
--- NOTE | 2019-08-03 16:34 | NUR ---
TRIED TO CALL DR XIE AGAIN TO NOTIFY HIM OF CODE STATUS CHANGE, NO ANSWER
--- NOTE | 2019-08-03 18:15 | NUR ---
[facility] I have received report and had the opportunity to ask questions and assume patient care. Pt received with eyes closed. On 4L oxygen via NC oxygen saturation is 95%. Rhythm is sinus without ectopy. On levophed via right upper arm PICC line. MAP > 60. HOB elevated 30 degrees. Corpack TF with Jevity @ goal rate 60ml/hr. Pt with sitter at bedside, bilateral soft wrist restraints in place. No distress at change of shift. Addendum: 08/05/19 at 0128 by Lisa Bear RN Late entry for 08/03/19 1815 tube feeding rate 65ml/hr, goal rate.
--- NOTE | 2019-08-03 18:18 | NUR ---
Patient in room CICU 2013. I have received report and had the opportunity to ask questions and assume patient care.
--- NOTE | 2019-08-03 18:18 | NUR ---
Problems reprioritized. Patient report given, questions answered & plan of care reviewed with ANIBAL FIELDS.
[2019-08-03] MEDS: insulin regular, human U-100 3ml vial - multi-dose SQ SCH (20:15)
[2019-08-03] MEDS: insulin glargine (Lantus) pen - multi-dose SQ SCH (20:18)
[2019-08-04] VITALS (16 sets, daily range): BP systolic 78–141; BP diastolic 31–63
[2019-08-04] MEDS: HYDROmorphone inj. 0.5 MG/0.5 ML DISP.SYRIN IV PRN ×5 (00:52→11:44)
[2019-08-04] MEDS: insulin regular, human U-100 3ml vial - multi-dose SQ SCH (02:10)
[2019-08-04] MEDS: lactulose 20gm/30ml cup PO SCH ×3 (02:31→14:00)
[2019-08-04] MEDS: metroNIDAZOLE-Flagyl 500mg/NS 100 ML IV SCH ×3 (02:42→16:00)
--- NOTE | 2019-08-04 03:04 | NUR ---
Suctioned via oropharynx. Large amounts of thick brown secretions obtained. Unable to pass catheter through right nares.
[2019-08-04 03:06] LABS: BASOPHILS # (AUTO) 0.1 X10'3 (0-0.2); BASOPHILS % (AUTO) 0.2 % (0-1); HEMOGLOBIN 7.1 g/dl (12.0-16.0)
[2019-08-04 03:11] LABS: EOSINOPHILS % (AUTO) 0 % (0-6); HEMATOCRIT 24.6 % (35.0-45.0); LYMPHOCYTES # (AUTO) 2.7 X10'3 (1.1-4.8); LYMPHOCYTES % (AUTO) 6.2 % (21-51); MEAN CORPUSCULAR HEMOGLOBIN 27.9 PG (27.0-31.0); MEAN CORPUSCULAR VOLUME 96.4 FL (78-98); MEAN PLATELET VOLUME 9.5 FL (7.4-10.4); MONOCYTES # (AUTO) 1.4 X10'3 (0-0.9); MONOCYTES % (AUTO) 3.3 % (2-12); NEUTROPHILS # (AUTO) 38.7 X10'3 (1.8-7.7); NEUTROPHILS % (AUTO) 90.3 % (42-75); PLATELET COUNT 425 X10'3 (140-440); RED BLOOD COUNT 2.55 X10'6 (4.20-5.60); RED CELL DISTRIBUTION WIDTH 17.2 % (11.5-14.5)
[2019-08-04 03:14] LABS: WHITE BLOOD COUNT 42.9 X10'3 (4.5-11.0)
[2019-08-04 03:19] LABS: ALANINE AMINOTRANSFERASE 24 U/L (12-78); ALBUMIN 1.4 G/DL (3.4-5.0); ALBUMIN/GLOBULIN RATIO 0.5 (1.1-1.5); ALKALINE PHOSPHATASE 244 IU/L (46-116); ANION GAP 6 (8-16); ASPARTATE AMINO TRANSFERASE 23 U/L (10-37); BILIRUBIN,TOTAL 0.2 MG/DL (0.1-1.0); BLOOD UREA NITROGEN 87 MG/DL (7-18); BUN/CREATININE RATIO 46.3 (6.6-38.0); CALCIUM 7.8 MG/DL (8.5-10.1); CHLORIDE 118 MMOL/L (99-107); CREATININE 1.88 MG/DL (0.40-0.90); GLUCOSE 177 MG/DL (70-104); POTASSIUM 4.8 MMOL/L (3.5-5.1); PREALBUMIN 7.9 MG/DL (19-36); SODIUM 150 MMOL/L (135-145); TOTAL CARBON DIOXIDE 25.6 MMOL/L (24-32); TOTAL PROTEIN 4.5 G/DL (6.4-8.2); eGFR 26 ML/MIN
--- NOTE | 2019-08-04 03:33 | NUR ---
Lab results called to [employer] [employer]. No new orders.
[2019-08-04] MEDS: albuterol 2.5 MG/3 ML nebule NEB SCH ×3 (03:50→12:02)
[2019-08-04 05:11] LABS: ANISOCYTOSIS 1+; NUCLEATED RED BLOOD CELLS 9 /100WBC (0-0); PLATELET ESTIMATE NORMAL; TOTAL CELLS COUNTED 100
[2019-08-04 05:12] LABS: HYPOCHROMASIA 1+; LARGE PLATELETS FEW; POLYCHROMASIA 1+
[2019-08-04] MEDS: NORepinephrine 8mg/ 250ml NS 250 ML IV SCH (05:53)
--- NOTE | 2019-08-04 06:30 | NUR ---
Problems reprioritized. Patient report given, questions answered & plan of care reviewed.
[2019-08-04] MEDS: CefTRIAXone 2gm/D5W 50ml 50 ML IV SCH (07:33)
[2019-08-04] MEDS: iron sucrose complex injection 200 MG in normal saline 100ml IV soln 100 ML IV SCH (07:33)
[2019-08-04] MEDS: docusate sodium 100mg/10ml UD cup CORPAK SCH (07:33)
[2019-08-04] MEDS: multivitamins, therapeutics tablet PO SCH (07:34)
[2019-08-04] MEDS: gabapentin 100mg capsule CORPAK SCH (07:34)
[2019-08-04] MEDS: folic acid 1mg tablet CORPAK SCH (07:34)
[2019-08-04] MEDS: lactobacillus rhamnosus 10,000 MMU CELLS/CAPSULE CORPAK SCH (07:35)
[2019-08-04] MEDS ORDERED: morphine 4 MG/ML inj SYRINge IV PRN (13:20)
[2019-08-04] MEDS: LORazepam 2 mg/ml vial IV PRN ×2 (14:37→22:24)
--- NOTE | 2019-08-04 18:15 | NUR ---
Patient in room CICU 2013. I have received report from Aundrea BARNETT and had the opportunity to ask questions and assume patient care. Pt received with eyes closed. Pupils non reactive. Oxygen via NC @ 1L/m. RR unlabored@18/min. Rhythm is sinus HR 88/min. Unable to palpate bilateral pedal or right radial pulse. Capillary refill is delayed to nail beds. PICC line to right upper arm with NS TKO. Rectal tube with brown liquid stool. Conrad cath with cloudy tea colored urine. Extremities floated on pillows. Pt is comfort measures only. No family at bedside at shift change.
--- NOTE | 2019-08-04 20:47 | NUR ---
Daughter Ximena Diaz phoned nurses station inquiring of blood pressure and heart rate. Daughter updated. Mortuary name & release of remains consent obtained over the phone. Daughter will be in tomorrow. Chosen mortuary Is [facility] [address] [place] [id number] .
--- NOTE | 2019-08-04 21:00 | NUR ---
Right lateral chest dressing saturated with pale pink tinged fluid. CHG bath rendered, gown & linen changed. Addendum: 08/05/19 at 0443 by Lisa Bear RN Skin tear noted to left abdomen. Rinsed with NS, Xeroform applied and topped with gauze dressing & paper tape. Dressing to prior chest tube site changed. Gauze dressing with ABD pad & paper tape applied.
--- NOTE | 2019-08-04 22:24 | NUR ---
Ativan given for agitation. Pt turning head side to side & flailing right arm. RR 30's.
[2019-08-04] MEDS: morphine 4 MG/ML inj SYRINge IV PRN (22:32)
--- NOTE | 2019-08-04 23:30 | NUR ---
Sedate & calm post ativan/morphine. RR remain shallow at 32-38/min. Oxygen saturation 85-92. Right lateral chest dressing saturated with serous color fluid. Dressing changed. 4x4 gauze & ABD pad applied to prior chest tube sites with paper tape. Chest tube sites with sutures.
[2019-08-05 00:44] VITALS: BP 81/37
--- NOTE | 2019-08-05 01:00 | NUR ---
Repositioned with pillows. Oral care rendered. Mouth moisturizer applied.
[2019-08-05] MEDS: morphine 4 MG/ML inj SYRINge IV PRN (01:05)
[2019-08-05 02:05] VITALS: BP 71/32
[2019-08-05] MEDS: HYDROmorphone inj. 0.5 MG/0.5 ML DISP.SYRIN IV PRN (02:30)
[2019-08-05 04:00] VITALS: BP 75/34
--- NOTE | 2019-08-05 04:47 | NUR ---
RR 36/min oxygen saturation 85%. Rhythm remains sinus HR 94/min.
--- NOTE | 2019-08-05 05:16 | NUR ---
RR agonal 17/min. BP 52/22 Apical pulse 68/min. RN at bedside holding pts hand.
[2019-08-05 05:25] VITALS: BP 0/0
--- NOTE | 2019-08-05 05:30 | NUR ---
RN IS TO DOCUMENT YES TO ALL APPLICABLE AREAS Pronouncement of :524 1. Time Physician Notified: [id number] 2. Date of :08/05/19 3. Time of : 05:25 4. DNR/Withdraw life support documented: Yes 5. Monitor strip has been placed on chart:Yes 6. Assessment process is of one-minute duration and includes following criteria: a) Patient is unresponsive to all stimuli: Yes b) Pupils fixed and non-reactive: Yes c) Auscultation of precordium reveals absence of heart tones:Yes d) Auscultation of lungs reveals absence of breath sounds: Yes e) Absence of blood pressure / all vital signs: Yes f) QRS complexes are not present on monitor / EKG strip: Yes Asystole g) Pacer spikes without capture:N/A 4. Comments: Remains are to be released to [facility] per daughter Ximena Diaz 08/04/19 @8.
--- NOTE | 2019-08-05 05:37 | NUR ---
Daughter Ximena Diaz notified of patients expiration. Daughter will be in today to brick picker belongings: radio CD's & pictures.
--- NOTE | 2019-08-05 05:50 | NUR ---
Mortuary contacted, spoke with Rupesh at [facility]. piecer up set for 07:15. Belongings placed in bag and labeled for daughter to corn picker.
--- NOTE | 2019-08-05 06:11 | NUR ---
Problems reprioritized. Patient report given, questions answered & plan of care reviewed with Hortensia BARNETT.
--- NOTE | 2019-08-05 06:13 | NUR ---
Received report from Lisa BARNETT noc shift, patient passed prior to shift change. Mortuary called awaiting arrival. Belongings gathered and ready for daughter Ximena to collect.
--- NOTE | 2019-08-05 07:50 | NUR ---
Josue from [facility] escorted patient with security out of hospital at this time. Patient's belongings delivered to front end manager for daughter Ximena to pick pack worker. desktop operator notified that there are 3 vases with floors on our floor that I will bring down if daughter would like to take them.
== END 2019-08-05 05:25 | disposition expired | DRG 853 ==
LOC: ER 11:43 → ED HOLD 14:40 → PCU 3S 17:40 → CICU 2S 07-24 15:32
PROVIDERS: ADMIT Family Medicine
PROC: 0W9930Z Drainage of Right Pleural Cavity with Drainage Device, Percutaneous Approach (ICD-10-PCS; 2019-07-21)
PROC: 3E0L3GC Introduction of Other Therapeutic Substance into Pleural Cavity, Percutaneous Approach (ICD-10-PCS; 2019-07-22)
PROC: 0BBC0ZZ Excision of Right Upper Lung Lobe, Open Approach (ICD-10-PCS; 2019-07-24)
PROC: 0BNF0ZZ Release Right Lower Lung Lobe, Open Approach (ICD-10-PCS; 2019-07-24)
PROC: 0W9900Z Drainage of Right Pleural Cavity with Drainage Device, Open Approach (ICD-10-PCS; 2019-07-24)
PROC: 0BJ08ZZ Inspection of Tracheobronchial Tree, Via Natural or Artificial Opening Endoscopic (ICD-10-PCS; 2019-07-24)
PROC: 03HY32Z Insertion of Monitoring Device into Upper Artery, Percutaneous Approach (ICD-10-PCS; 2019-07-24)
PROC: 4A133B1 Monitoring of Arterial Pressure, Peripheral, Percutaneous Approach (ICD-10-PCS; 2019-07-24)
PROC: 4A133J1 Monitoring of Arterial Pulse, Peripheral, Percutaneous Approach (ICD-10-PCS; 2019-07-24)
PROC: 0BBD0ZZ Excision of Right Middle Lung Lobe, Open Approach (ICD-10-PCS; principal; 2019-07-24 12:40)
PROC: 5A09457 Assistance with Respiratory Ventilation, 24-96 Consecutive Hours, Continuous Positive Airway Pressure (ICD-10-PCS; 2019-07-26)
PROC: 02HV33Z Insertion of Infusion Device into Superior Vena Cava, Percutaneous Approach (ICD-10-PCS; 2019-07-30)
PROC: B548ZZA Ultrasonography of Superior Vena Cava, Guidance (ICD-10-PCS; 2019-07-30)
PROC: CF1C1ZZ Planar Nuclear Medicine Imaging of Hepatobiliary System, All using Technetium 99m (Tc-99m) (ICD-10-PCS; 2019-07-30)
DX: A41.9 Sepsis, unspecified organism (principal); J85.1 Abscess of lung with pneumonia; E43 Unspecified severe protein-calorie malnutrition; J96.00 Acute respiratory failure, unspecified whether with hypoxia or hypercapnia; E87.1 Hypo-osmolality and hyponatremia; E87.0 Hyperosmolality and hypernatremia; J93.83 Other pneumothorax; R18.8 Other ascites; J91.8 Pleural effusion in other conditions classified elsewhere; N17.9 Acute kidney failure, unspecified; G62.9 Polyneuropathy, unspecified; B95.4 Other streptococcus as the cause of diseases classified elsewhere; Z20.828 Contact with and (suspected) exposure to other viral communicable diseases; D64.9 Anemia, unspecified; K21.9 Gastro-esophageal reflux disease without esophagitis; M48.061 Spinal stenosis, lumbar region without neurogenic claudication; E61.1 Iron deficiency; E87.5 Hyperkalemia; I10 Essential (primary) hypertension; K52.9 Noninfective gastroenteritis and colitis, unspecified; M81.0 Age-related osteoporosis without current pathological fracture; Z51.5 Encounter for palliative care; Z66 Do not resuscitate; Z88.1 Allergy status to other antibiotic agents; Z68.22 Body mass index [BMI] 22.0-22.9, adult; Z78.1 Physical restraint status
CPT/HCPCS: 32557; 36415; 36573; 36600; 71045; 71250; 74018; 74176; 76937; 78226; 80048; 80053; 81003; 82728; 82803; 82948; 83036; 83540; 83550; 83605; 83615; 83735; 84100; 84132; 84134; 84145; 84157; 85018; 85025; 85027; 85730; 86885; 86900; 86901; 86920; 87040; 87070; 87075; 87077; 87081; 87102; 87186; 87635; 88300; 88305; 88307; 89051; 92508; 92616; 93306; 94002; 94003; 94640; 94660; 94667; 94668; 94760; 97110; 97116; 97161; 97530; 97535; A4215; A4618; A6258; A6449; A7000; A7048; A9537; C1758; C9250; G0378; J0690; J0692; J0696; J1100; J1170; J1644; J1756; J1815; J1885; J1940; J2001; J2060; J2212; J2250; J2270; J2310; J2370; J2405; J2597; J2704; J3010; J3370; J3475; J3490; J7030; J7042; J7120; P9045; P9047; Q4081; Q9963